=== PATIENT | female | born 1955 | race Caucasian/White ===

== ENCOUNTER → 2017-01-11 | Outpatient (CLI) | payer BC ==
--- NOTE | 2017-01-11 11:27 | MM ---
Reason for exam: screening (asymptomatic). Last mammogram was performed 1 year and 9 months ago. History: Patient is postmenopausal and has history of other cancer at age 26. Physical Findings: A clinical breast exam by your physician is recommended on an annual basis and results should be correlated with mammographic findings. MG 3D Screening Mammo W/Cad Bilateral CC and MLO view(s) were taken. Prior study comparison: April 03, 2015, mammogram, performed at [facility]. February 19, 2014, mammogram, performed at [facility]. There are scattered fibroglandular densities. No significant changes when compared with prior studies. ASSESSMENT: Benign, BI-RAD 2 RECOMMENDATION: Routine screening mammogram of both breasts in 1 year.
== END | disposition home or self-care (01) ==
LOC: RADMAMWWP 07:59
PROVIDERS: ATTEND Family Medicine
DX: Z12.31 Encounter for screening mammogram for malignant neoplasm of breast (principal)
CPT/HCPCS: 77063; G0202

== ENCOUNTER → 2017-01-31 | Outpatient (CLI) | payer BC ==
--- NOTE | 2017-01-31 12:57 | XR ---
EXAMINATION TYPE: XR knee complete LT DATE OF EXAM: 01/31/2017 COMPARISON: NONE HISTORY: Pain TECHNIQUE: Four views are submitted. FINDINGS: Moderate generalized degenerative change with mild hypertrophic changes. No erosive change. Mild diff use osteopenia. Osseous structures are intact. No acute fracture seen. IMPRESSION: 1. Osteoarthritis..
== END ==
LOC: RADXRMAIN 12:33
PROVIDERS: ATTEND Family Medicine
DX: M17.12 Unilateral primary osteoarthritis, left knee (principal)

== ENCOUNTER → 2018-06-23 | Outpatient (CLI) | payer BC, OTHER ==
--- NOTE | 2018-06-23 10:45 | BD ---
EXAMINATION TYPE: Axial Bone Density DATE OF EXAM: 06/23/2018 COMPARISON: NONE. Baseline exam. CLINICAL HISTORY: Postmenopausal female. Osteoporosis screening. Height: 67.5 IN Weight: 201 LBS RISK FACTORS HISTORY OF: History of Wrist Fracture: YES RT AGE 13 Active: YES Postmenopausal woman: AGE 56 MEDICATIONS: Thyroid Medications: YES Which medication: Levothyroxine How Lon+ YEARS Additional Medications: VIT D, MULTI VIT, LEVOTHYROXINE, SIMVASTATIN EXAM MEASUREMENTS: Bone mineral densitometry was performed using the IFTTT System. Bone mineral density as measured about the Lumbar spine is: ----- L1-L4(G/cm2): 0.864 T Score Values are as follows: ----- L2: -2.8 ----- L3: 2.6 ----- L4: 2.8 ----- L1-L4: 2.6 Bone mineral density BASELINE Bone mineral density about the R hip (g/cm2): 0.768 Bone mineral density about the L hip (g/cm2): 0.747 T Score values are as follows: -----R Neck: -1.9 -----L Neck: -2.1 -----R Total: -2.3 -----L Total: -1.4 Bone mineral density BASELINE IMPRESSION: Osteopenia (T Score between -2.5 and -1). Values approach osteoporosis in regards to the right femur. There is slightly increased risk of fracture and the patient may be considered for treatment. Re-Screen 2-5 years. NOTE: T-SCORE=SD OF THE YOUNG ADULT MEAN.
--- NOTE | 2018-06-26 10:40 | MM ---
Reason for exam: screening (asymptomatic). Last mammogram was performed 1 year and 5 months ago. History: Patient is postmenopausal and has history of other cancer at age 26. Physical Findings: A clinical breast exam by your physician is recommended on an annual basis and results should be correlated with mammographic findings. MG 3D Screening Mammo W/Cad Bilateral CC and MLO view(s) were taken. Prior study comparison: January 11, 2017, bilateral MG 3d screening mammo w/cad. April 03, 2015, mammogram, performed at [facility]. There are scattered fibroglandular densities. No significant changes when compared with prior studies. ASSESSMENT: Negative, BI-RAD 1 RECOMMENDATION: Routine screening mammogram of both breasts in 1 year.
== END | disposition home or self-care (01) ==
LOC: RADMAMWWP 09:07
PROVIDERS: ATTEND Family Medicine
DX: Z12.31 Encounter for screening mammogram for malignant neoplasm of breast (principal); M85.851 Other specified disorders of bone density and structure, right thigh; M85.852 Other specified disorders of bone density and structure, left thigh; M85.89 Other specified disorders of bone density and structure, multiple sites; Z78.0 Asymptomatic menopausal state
CPT/HCPCS: 77063; 77067; 77080

== ENCOUNTER → 2019-01-16 | Outpatient (CLI) | payer BC | END | disposition home or self-care (01) | LOC: LABWHC1 09:26 | PROVIDERS: ATTEND Otolaryngology | DX: J30.89 Other allergic rhinitis (principal) | CPT/HCPCS: 36415 ==

== ENCOUNTER → 2019-07-13 | Outpatient (CLI) | payer BC ==
--- NOTE | 2019-07-16 13:44 | MM ---
Reason for exam: screening (asymptomatic). Last mammogram was performed 1 year and 1 month ago. History: Patient is postmenopausal and has history of other cancer at age 26. Physical Findings: A clinical breast exam by your physician is recommended on an annual basis and results should be correlated with mammographic findings. MG 3D Screening Mammo W/Cad Bilateral CC and MLO view(s) were taken. Prior study comparison: June 23, 2018, bilateral MG 3d screening mammo w/cad. January 11, 2017, bilateral MG 3d screening mammo w/cad. The breast tissue is heterogeneously dense. This may lower the sensitivity of mammography. No suspicious abnormality. No significant changes when compared with prior studies. ASSESSMENT: Negative, BI-RAD 1 RECOMMENDATION: Routine screening mammogram of both breasts in 1 year.
== END | disposition home or self-care (01) ==
LOC: RADMAMWWP 15:25
PROVIDERS: ATTEND Family Medicine
DX: Z12.31 Encounter for screening mammogram for malignant neoplasm of breast (principal)
CPT/HCPCS: 77063; 77067

== ENCOUNTER → 2019-07-19 | Outpatient (CLI) | payer BC ==
--- NOTE | 2019-07-20 10:14 | XR ---
EXAMINATION TYPE: XR wrist complete RT DATE OF EXAM: 07/19/2019 COMPARISON: NONE HISTORY: Pain TECHNIQUE: Four views submitted. FINDINGS: The osseous structures are intact. The joint spaces are preserved and there is no acute fracture or dislocation. Benign cyst within the scaphoid noted. IMPRESSION: 1. No definite acute fracture or dislocation if symptoms persist, follow-up study in 7 to 10 days wo uld be suggested
== END | disposition home or self-care (01) ==
LOC: RADXRMAIN 16:38
PROVIDERS: ATTEND Family Medicine
DX: M25.531 Pain in right wrist (principal)

== ENCOUNTER → 2019-07-26 | Outpatient (CLI) | payer BC | END | disposition home or self-care (01) | LOC: LABWHC1 06:54 | PROVIDERS: ATTEND Orthopaedic Surgery | DX: M25.531 Pain in right wrist (principal) | CPT/HCPCS: 36415; 82306 ==

== ENCOUNTER → 2020-10-22 | Outpatient (CLI) | payer BC ==
--- NOTE | 2020-10-23 05:04 | MR ---
EXAMINATION TYPE: MR lumbar spine wo con DATE OF EXAM: 10/22/2020 COMPARISON: None HISTORY: Low back pain that goes down left hip and leg for 3-4 weeks. Multiplanar multiecho imaging of the lumbar spine was performed without contrast. Lumbar vertebra have fairly normal alignment. There is some mild posterior disc bulging at L3-4. Ther e is no lumbar paraspinal mass. The posterior elements are intact. Upper sacroiliac joints are intact . There is narrowing of the L4-5 disc but there is slight increased signal in the disc space on the T2 images. No significant reactive changes seen in the adjacent vertebral bodies. There is right side sm all disc herniation at L4-5 impinging on the lateral recess. There is posterior apparent disc herniat ion at L5-S1 which is extruded and elevating the posterior longitudinal ligament along the posterior aspect of the L5 vertebral body. This does not appear to be lateralizing 2 year side. IMPRESSION: Posterior disc herniation at L5-S1 with elevation of the posterior longitudinal ligament. There is ov erall not a significant spinal stenosis. I do not see a significant abnormality lateralizing to the l eft side in this patient with left side pain. There is small posterior L4-5 disc herniation on the right side. There is mild increased fluid signal in the L4-5 disc that raises the possibility of an early discitis.
== END | disposition home or self-care (01) ==
LOC: RADMRIMAIN 16:56
PROVIDERS: ATTEND Nurse Practitioner Family
DX: M51.27 Other intervertebral disc displacement, lumbosacral region (principal)
CPT/HCPCS: 72148

== ENCOUNTER → 2021-09-09 | Outpatient (CLI) | payer MEDICARE | END | disposition home or self-care (01) | LOC: LABWHC1 09:52 | PROVIDERS: ATTEND Nurse Practitioner Family | DX: E78.6 Lipoprotein deficiency (principal) | CPT/HCPCS: 36415; 93005 ==

== ENCOUNTER → 2021-09-21 | Outpatient (CLI) | payer MEDICARE, OTHER ==
[2021-09-21 09:53] LABS: INR 0.9 (<1.2); Partial Thromboplastin Time 23.7 sec (22.0-30.0); Prothrombin Time 10.1 sec (9.0-12.0)
[2021-09-21 14:53] LABS: HCT 39.8 % (37.2-46.3); HGB 12.8 g/dL (12.0-15.0); MCHC 32.2 g/dL (32.0-37.0); MCV 93.4 fL (80.0-97.0); Mean Platelet Volume 10.8 fL (9.5-12.2); NRBC Per 100 WBC 0 /100 WBCS (0.0-0.0); Platelet Count 249 X 10*3/uL (140-440); RBC 4.26 X 10*6/uL (4.10-5.20); RDW 12.9 % (11.5-14.5); WBC 4.76 X 10*3/uL (4.50-10.00)
[2021-09-21 15:00] LABS: African American GFR (CKD) 67.7 (60.0-200.0); Albumin 4.4 g/dL (3.8-4.9); Albumin/Globulin Ratio 1.74 (1.60-3.17); Anion Gap 15.7 mmol/L (10.00-18.00); BUN/Creat Ratio 13.86 Ratio (12.00-20.00); Calcium 9.6 mg/dL (8.7-10.3); Carbon Dioxide 24.7 mmol/L (20.0-27.5); Globulin 2.5 g/dL (1.6-3.3); Non-African American GFR(CKD) 58.4 (60.0-200.0); Potassium 3.5 mmol/L (3.5-5.5); Total Bilirubin 0.5 mg/dL (0.30-1.20); Total Protein 6.9 g/dL (6.2-8.2)
[2021-09-21 16:05] LABS: Appearance,Urine Clear (Clear); Bacteria,Urine None Seen /HPF (None Seen); Bilirubin,Urine Negative (Negative); Blood,Urine Negative (Negative); Color,Urine Yellow (Yellow); Ketones,Urine Negative (Negative); Leukocyte Esterase,Urine Trace (Negative); Nitrite,Urine Negative (Negative); Protein,Urine Negative (Negative); RBC,Urine 0-2 /HPF (0-2); Specific Gravity,Urine 1.008 (1.001-1.030); Urobilinogen,Urine 0.2 (0.2,1.0); WBC,Urine 0-5 /HPF (0-5)
== END | disposition home or self-care (01) ==
LOC: LABPAT 07:37
PROVIDERS: ATTEND Orthopaedic Surgery
DX: Z01.812 Encounter for preprocedural laboratory examination (principal); M16.11 Unilateral primary osteoarthritis, right hip
CPT/HCPCS: 80053; 81001; 85027; 85610; 85730; 87070

== ENCOUNTER 2021-09-30 16:32 | Day surgery (SDC) | payer MEDICARE, OTHER ==
[2021-09-28 12:24] VITALS: BMI 32.5
[2021-09-30] MEDS: LACTATED RINGERS 1,000 ML IV SCH (11:40)
--- NOTE | 2021-09-30 16:25 | P.OP ---
Date of Procedure: 09/30/21 Preoperative Diagnosis: Severe right hip osteoarthritis Postoperative Diagnosis: Same Procedure(s) Performed: Right direct anterior total hip arthroplasty Implants: 1. Sloan Trident II 54-mm cup 2. Sloan accolade C size #5 STD offset cemented stem 3. Biolox delta ceramic 36 mm head, +2.5 mm Anesthesia: JAMAR Surgeon: Michael Henao Radiology Ct Technologist #1: Miri Cheng Estimated Blood Loss (ml): 500 IV fluids (ml): 1,200 Pathology: none sent Condition: stable Disposition: PACU Indications for Procedure: I had a long discussion with the patient in the office on the potential risks and complications of an elective total hip replacement through a direct anterior approach. Risks discussed include, but are certainly not limited to, risks from anesthesia, superficial infection requiring local wound care or antibiotics, deep ralph-prosthetic joint infection and the treatment required to eradicate infection, intraoperative fracture, postoperative periprosthetic fracture, damage to local blood vessels or nerves particularly the lateral femoral cutaneous nerve, delayed wound healing requiring local wound care or possibly surgical debridement, hip dislocation, leg length discrepancy, soft tissue irritation around the total hip implant such as iliopsoas tendinitis or trochanteric bursitis, wear and osteolysis from the implants, squeaking or audible noises, groin pain, thigh pain, heterotopic ossification, stiffness, aseptic loosening of the implants, dissatisfaction with surgical outcome, need for revision surgery, DVT, PE, swelling of the operative extremity, acute coronary event, stroke, failure to thrive, and possibly loss of life or limb. The patient understands that while these are the most common complications after an elective hip replacement there are certainly other less common complications possible. They were given ample time to ask questions regarding the potential complications of a hip replacement. Following our discussion the patient provided their verbal and written consent to go forward with an elective total hip replacement. Operative Findings: Severe right hip osteoarthritis. There is diffuse osteopenia and poor quality bone quality both in the acetabulum and femur. Due to the patient's preoperative x-rays showing osteopenia and poor bone quality intraoperatively I elected to use cemented fixation on the femur. Description of Procedure: The patient was identified in the preoperative holding area and the correct hip was marked with my initials. I reviewed the procedure and consent with the pat ient. All of their questions were answered. The patient was then brought back into the operating room by anesthesia. While on the [facility] anesthesia was administered by the anesthesia team. Preoperative antibiotics and tranexamic acid were also given. After the patient was under anesthesia I examined their ankles to determine their preoperative leg length discrepancy. The skin over the anterior aspect of the hip was shaved to remove hair over the site of planned incision. Both feet and ankles were padded with webril and boots for the Holden were applied. The patient was then carefully transferred onto the Holden table. A perineal post was immediately placed. The arms were placed on arm holders and were well-padded. Both boots were secured to the spars on the Holden table. The patient was positioned so that the pelvis was centered over the post. Nonsterile drapes were applied. A timeout was performed identifying the correct patient, operative extremity, and procedure. At this point fluoroscopy was brought in to take preoperative images of the pelvis and operative hip. Using the standing AP pelvis from the office as a template, a comparable image was obtained with fluoroscopy. A metallic bar was used to create a bi-ischial line for use as a reference to leg length adjustments during the procedure. Global offset was also measured on both the operative and nonoperative leg. Fluoroscopy was then brought out and a pre-scrub using a chlorhexidine scrub brush was performed. The operative limb was then prepped and draped in the standard sterile fashion. An anterior longitudinal incision was made lateral and distal to the ASIS. The skin and subcutaneous tissues were incised sharply. The underlying tensor fascia was identified and incised in its midportion. The fascia was dissected free from the underlying muscle and the muscle belly was retracted. A blunt tipped cobra retractor was placed over the superior neck under the muscle fibers of the gluteus minimus. The deep enveloping fascia of the tensor was incised. The anterior leash of vessels were then identified and cauterized. The fascia between the rectus and the capsule was then incised and the pre-capsular fat was excised. A second Cobra was placed inferior to the neck. The interval between the rectus and iliocapsularis and the hip capsule was developed and a retractor was placed carefully over the anterior rim of the acetabulum. A T-shaped anterior capsulotomy was performed. The superior capsular leaflet was left in place in the inferior capsular flap was excised. The Cobra retractors were placed intracapsularly. We then made a femoral neck osteotomy according to preoperative and intraoperative templating and confirmed the level of the osteotomy using fluoroscopic imaging. The femoral head was removed, passed off to the back table, and sized. The superior capsular flap was excised. Retractors were placed circumferentially exposing the acetabulum. We then circumferentially debrided the acetabulum free of labrum and osteophytes. The pulvinar was removed to fully visualize the cotyloid fossa. We then sequentially reamed to achieve peripheral fit and excellent bleeding subchondral bone. The socket was thoroughly irrigated. The acetabular component was impacted into the appropriate position using fluoroscopy to guide version, inclination, and depth of insertion taking care to have a comparable image of the AP pelvis to the standing image taken in the office. An excellent press-fit was achieved and final position was confirmed using fluoroscopy. The press fit was augmented with bony cancellus dome screws. The liner was then impacted into the socket. Attention was then turned to the femur. The remnant dorsal lateral capsule was excised. The short external rotators were visible and protected. A bone hook was used to confirm appropriate translation of the trochanter away from the acetabulum. The leg was then extended and adducted and the bone hook was used to elevate the femur for broaching. On inspection of the patient's proximal femur, they appeared to have poor bone quality so I elected to proceed with cemented fixation of the femoral component. A box osteotome and blunt tipped canal sound was then utilized to gain access to the femoral canal. We then sequentially broached the femur in appropriate anteversion until torsional stability was achieved and the implant was felt to have reached the appropriate size to allow trialing. The neck cut was brought flush to the trial broach with a calcar planar. A trial neck and head were then placed onto the broach and the hip was atraumatically reduced under direct visualization. External rotation to 90 was performed to assess stability. Fluoroscopy was brought in. An AP and lateral fluoroscopic image of the proximal femur was obtained to assess position and fill of the trial broach. An AP of the pelvis was then obtained and matched to the preoperative image taken. A bi-ischial bar was then placed and measurements were taken to assess changes in length and offset. The hip was then carefully dislocated, the proximal femur was exposed, and the trial implants were removed. The proximal femur was then prepared for cementing. The canal was thoroughly irrigated with pulsatile lavage to remove blood and marrow contents. A cement restrictor was placed to a depth just distal to the tip of the final implant. Epinephrine-soaked gauze was then packed into the proximal femur. 2 bags of cement were then mixed using a centrifuge and placed into a cement gun. Anesthesia was notified that cementing was about to commence to make sure the patient was appropriately ventilated and hydrated. Once the cement had reached appropriate consistency, the cement gun was used to fill the canal in a retrograde fashion starting at the restrictor. Cement was then pressurized into the canal with a blue tipped haul truck driver. The stem was then carefully introduced into the cement taking care to guide the implant into appropriate version. The stem was held in position until the cement had fully set. All extra cement was removed while the cement was hardening. The trunnion was cleansed and the final head was tapped into place to engage the Finn taper. The acetabulum was irrigated and visualized to be free of debris. The hip was carefully reduced. Stability was checked clinically with external rotation to 90 and there was no evidence of instability. Final fluoroscopic images were taken. The wound was then thoroughly irrigated and soaked with a dilute Betadine rinse for 3 minutes. 3 L of sterile saline was irrigated through the wound using pulsatile lavage. Local anesthetic cocktail was injected into the soft tissues around the surgical field. A deep drain was placed. The wound was then closed in layers. A sterile dressing was placed over the surgical incision and drain site. The drapes were taken down and the patient was carefully transferred off of the Holden table. Following removal of the boots the leg lengths felt acceptable. The patient was then taken to recovery room having tolerated the procedure well. Miri Cheng PA-C was required as a skilled sociology research assistant for patient positioning, surgical exposure, retraction, placement of implants, and closure of the surgical wound. PLAN: The patient can weight-bear as tolerated on the operative extremity. 2 doses of postoperative antibiotics. DVT prophylaxis with aspirin 81 mg twice a day based on preoperative risk stratification. Physical therapy for gait training. Discontinue drain postoperative day #1 if output is less than 100 mL per shift.
[~2021-09-30 16:32] MED LIST: ACETAMINOPHEN TAB 500 MG TAB PO PRN; DEXAMETHASONE SOD PHOSPHATE 10 MG/ML 1 ML VIAL IV PRN; DEXAMETHASONE SOD PHOSPHATE 4 MG/ML 1 ML VIAL IV ONE; DOCUSATE 100 MG CAP PO PRN; FAMOTIDINE 20 MG/2 ML VIAL IVP PRN; GLYCOPYRROLATE 0.2 MG/ML 2 ML VIAL ONE; HYDROcodone/APAP 5-325MG 1 EACH TAB PO PRN; HYDROmorphone (PF) 1 MG/ML ONE; HYDROmorphone 0.5 MG/0.5 ML SYRINGE IVP PRN; KETOROLAC 15 MG/ML 1 ML VIAL IVP PRN; LACTATED RINGERS 1,000 ML IV ONE; LIDOCAINE 1% (10MG/ML) FOR IV START INTRADERMA PRN; LIDOCAINE 1% INJ 10MG/ML (20 ML MDV) ONE; MIDAZOLAM 2 MG/2 ML VIAL ONE; NALOXONE 0.4 MG/ML 1 ML VIAL IV PRN; NEOSTIGMINE 1 MG/ML 10 ML VIAL ONE; ONDANSETRON 4 MG/2 ML VIAL IVP ONE; ONDANSETRON 4 MG/2 ML VIAL IVP PRN; PROPOFOL 10 MG/ML 20 ML VIAL IV ONE; ROCURONIUM 10 MG/ML (5 ML VIAL) IV ONE; ROPIVACAINE 246.25 MG, EPINEPHrine 0.5 MG, KETOROLAC (30 mg/mL) 30 MG, cloNIDine HCL/PF... MISCELLANE PRN; ROPIVACAINE/EPI/CLONIDINE/KET 50 ML SYRINGE MISCELLANE PRN; SCOPOLAMINE 1.5MG/72HR PATCH TRANSDERM ONE; SUCCINYLCHOLINE CHLORIDE 100 MG/5 ML SYR IV ONE; TRANEXAMIC ACID 1,000 MG in SODIUM CHLORIDE 0.9% 100 ML IVPB ONE; TRANEXAMIC ACID IN NACL,ISO-OS 1,000 MG in SALINE 1 100ML.BAG IVPB PRN; TRANEXAMIC ACID IN NACL,ISO-OS 1,000 MG/100 ML BAG ONE; VANCOMYCIN 1,000 MG in SODIUM CHLORIDE 0.9% 250 ML IVPB PRN; ceFAZolin 3,000 MG in SODIUM CHLORIDE 0.9% IRRIGATIO 3,000 ML IRRIGATION ONE; diphenhydrAMINE 50 MG/ML 1 ML VIAL ONE; fentaNYL (PF) 50 MCG/ML 2 ML AMP ONE; hydrOXYzine pamoate 25 MG CAP PO PRN; oxyCODONE ER 10 MG TAB.ER.12H PO PRN
--- NOTE | 2021-09-30 16:42 | XR ---
EXAMINATION TYPE: XR Hip Limited RT DATE OF EXAM: 09/30/2021 COMPARISON: NONE HISTORY: Hip surgery TECHNIQUE: 5 views FINDINGS: 36 seconds of fluoroscopy time was recorded. There are 5 fluoroscopic images that show righ t hip prosthesis in anatomic position. No complicating process seen. IMPRESSION: No complicating process seen.
[2021-09-30] MEDS: HYDROmorphone 0.5 MG/0.5 ML SYRINGE IVP PRN (17:45)
[2021-09-30] MEDS: ASPIRIN 81 MG PO SCH (20:23)
[2021-09-30] MEDS: SENNOSIDES-DOCUSATE SODIUM 1 EACH TAB PO SCH (20:23)
[2021-10-01] MEDS: HYDROmorphone 0.5 MG/0.5 ML SYRINGE IVP PRN (06:23)
[2021-10-01 06:29] LABS: Basophils % (A) 0 %; Eosinophils % (A) 0 %; HCT 33.4 % (34.0-46.0); HGB 11.1 gm/dL (11.4-16.0); Lymphocytes # (A) 1.1 k/uL (1.0-4.8); Lymphocytes % (A) 13 %; MCH 31.6 pg (25.0-35.0); MCHC 33.2 g/dL (31.0-37.0); Mean Platelet Volume 7.3; Monocytes # (A) 0.6 k/uL (0-1.0); Monocytes % (A) 7 %; Neutrophils # (A) 6.8 k/uL (1.3-7.7); Neutrophils % (A) 79 %; Platelet Count 224 k/uL (150-450); RBC 3.51 m/uL (3.80-5.40); RDW 13.1 % (11.5-15.5); WBC 8.6 k/uL (3.8-10.6)
[2021-10-01] MEDS: LACTATED RINGERS 1,000 ML IV SCH (08:16)
[2021-10-01] MEDS: ASPIRIN 81 MG PO SCH ×2 (08:26→19:54)
--- NOTE | 2021-10-01 09:07 | FL ---
Fluoroscopy HISTORY: Hip replacement 36 seconds fluoroscopy time supplied to the referring clinician. 7 intraoperative C-arm images docum ent the procedure. See dictated report from orthopedic surgery.
[2021-10-01] MEDS: Acetaminophen-Codeine 300-30mg TAB PO PRN ×5 (09:11→23:58)
[2021-10-01] MEDS ORDERED: SODIUM CHLORIDE 0.65% NASAL SPRAY 44 ML BTL INTRANASAL PRN (09:31)
[2021-10-01] MEDS: LORATADINE 10 MG TAB PO SCH (10:16)
[2021-10-01] MEDS: CHOLECALCIFEROL 25 MCG (1000 IU) TABLET PO SCH (10:18)
[2021-10-01] MEDS: LEVOTHYROXINE 125 MCG TAB PO SCH (10:18)
[2021-10-01] MEDS: MULTIVITAMINS, THERA 1 EACH TAB PO SCH (10:18)
--- NOTE | 2021-10-01 11:56 | P.CONS ---
History of Present Illness - Reason for Consult Consult date: 10/01/21 Medical management Requesting physician: Michael Henao - Chief Complaint Severe right hip osteoarthritis - History of Present Illness Patient is a pleasant 66-year-old female that underwent right direct anterior total hip arthroplasty with Dr. Henao for severe right hip osteoarthritis. Patient has a pertinent medical history of hyperlipidemia, hypothyroidism, o steoarthritis, history of skin cancer and cervical cancer. Patient was seen and evaluated at bedside, was sitting up in the chair in no acute distress. Patient states she tolerated surgery well, does have surgical site pain that is being well managed with current medications. Patient also reports an episode of dizziness and having low blood pressure this morning. IV fluids were restarted and patient is feeling better. Home medications were reordered. Continue to monitor patient for hypotension and syncope. Review of Systems Constitutional: Denies chills, Denies fever Ears, nose, mouth and throat: Denies vertigo Cardiovascular: Reports lightheadedness, Denies high blood pressure, Denies palpitations, Denies shortness of breath Respiratory: Denies cough, Denies wheezing Gastrointestinal: Denies abdominal pain, Denies diarrhea, Denies nausea Genitourinary: Denies dysuria Musculoskeletal: right: hip pain Integumentary: Denies rash, Denies wounds Neurological: Denies headaches, Denies numbness Psychiatric: Denies anxiety Endocrine: Denies fatigue, Denies high blood sugars Hematologic/Lymphatic: Denies easy bruising Allergic/Immunologic: Denies angioedema Past Medical History Past Medical History: Cancer, Hyperlipidemia, Musculoskeletal Disorder, Osteoarthritis (OA), Thyroid Disorder Additional Past Medical History / Comment(s): seasonal allergies, hx. cervical cancer yrs ago-stage 1, skin cancer, constipation, current herniated disc History of Any Multi-Drug Resistant Organisms: None Reported Past Surgical History: Joint Replacement, Orthopedic Surgery Additional Past Surgical History / Comment(s): right knee surg, john paul bunionectomy & toe surg, cataracts removed, partial thyroidectomy, trh 09/30/21 Past Anesthesia/Blood Transfusion Reactions: Motion Sickness, Postoperative Nausea & Vomiting (PONV) Past Psychological History: Anxiety Additional Psychological History / Comment(s): regarding this surgery Smoking Status: Never smoker Past Alcohol Use History: Rare Past Drug Use History: None Reported - Past Family History Mother Family Medical History: No Reported History Medications and Allergies Home Medications Medication Instructions Recorded Confirmed Type Acetaminophen [Tylenol Extra 500 mg PO Q6H PRN 09/28/21 09/28/21 History Strength] Atorvastatin [Lipitor] 80 mg PO DAILY 09/28/21 09/28/21 History Cholecalciferol [Vitamin D3 (25 25 mcg PO DAILY 09/28/21 09/28/21 History Mcg = 1000 Iu)] Fexofenadine HCl [Maddi Allergy] 180 mg PO DAILY 09/28/21 09/28/21 History Fish Oil/Dha/Epa [Fish Oil 1,200 1 each PO BID 09/28/21 09/28/21 History mg Fish Oil] Glucos Sul 2Kcl/MSM/Chond/C/Mn 1 each PO DAILY 09/28/21 09/28/21 History [Glucosamine Chondroitin Cap] Levothyroxine Sodium [Synthroid] 125 mcg PO DAILY 09/28/21 09/28/21 History Montelukast Sodium [Singulair] 10 mg PO HS 09/28/21 09/28/21 History Multivitamins, Thera [Multivitamin 1 tab PO DAILY 09/28/21 09/28/21 History (formulary)] Sodium Chloride [Saline Nasal 1 spray EA NOSTRIL DIRECTED PRN 09/28/21 09/28/21 History Eitzen] Triamterene/Hydrochlorothiazid 1 each PO HS 09/28/21 09/28/21 History [Triamterene-Hctz 37.5-25 mg Tb] traMADol HCL [Ultram] 50 mg PO Q6HR PRN 09/28/21 09/28/21 History Acetaminophen-Codeine 300-30mg 1 tab PO Q4-6H PRN 7 Days #40 10/01/21 Rx [Tylenol w/codeine #3] tablet Aspirin 81 mg PO BID 30 Days #60 tab 10/01/21 Rx Docusate [Colace] 100 mg PO BID #60 capsule 10/01/21 Rx Omeprazole 40 mg PO DAILY 30 Days #30 cap 10/01/21 Rx Allergies Allergy/AdvReac Type Severity Reaction Status Date / Time hydrocodone [From Vicodin] AdvReac nausea, Verified 09/30/21 11:24 "feels loopy" Sulfa (Sulfonamide AdvReac Abdominal Verified 09/30/21 11:24 Antibiotics) Pain, nausea, vomiting Physical Exam Vitals: Vital Signs Temp Pulse Pulse Resp BP Pulse Ox 10/01/21 07:51 98.6 F 63 18 85/50 95 10/01/21 01:22 97.4 F L 63 16 107/67 93 L 09/30/21 20:10 98.6 F 76 16 110/71 98 09/30/21 18:15 88 92/63 09/30/21 18:00 93 105/64 09/30/21 17:45 66 111/72 09/30/21 17:30 65 103/65 09/30/21 17:15 98.5 F 73 127/85 97 09/30/21 16:59 63 16 99/58 100 09/30/21 16:45 57 L 16 96/56 99 09/30/21 16:30 58 L 16 105/60 100 09/30/21 16:15 97.3 F L 72 12 112/64 97 Intake and Output 09/30/21 10/01/21 10/01/21 22:59 06:59 14:59 Intake Total 500 Output Total 660 1004 Balance -160 -1004 Intake: IV 500 Output: Drainage 160 120 Right Thigh 160 120 Urine 800 Straight 400 Post Void Residual 84 Estimated Blood Loss 500 Other: Weight 98.6 kg - Constitutional General appearance: cooperative, no acute distress - EENT Eyes: EOMI, PERRLA ENT: normal oropharynx Ears: bilateral: normal - Neck Neck: normal ROM - Respiratory Respiratory: bilateral: CTA - Cardiovascular Heart rate: 60 Rhythm: regular Heart sounds: normal: S1, S2 radial pulse Peripheral Pulses: bilateral: Normal dorsalis pedis Peripheral Pulses: bilateral: Normal - Gastrointestinal General gastrointestinal: normal bowel sounds, soft - Integumentary Integumentary: normal - Musculoskeletal Musculoskeletal: gait normal - Psychiatric Psychiatric: A&O x's 3, appropriate affect, intact judgment & insight Results CBC & Chem 7: 10/01/21 05:48 Labs: Abnormal Lab Results - Last 24 Hours (Table) 10/01/21 Range/Units 05:48 RBC 3.51 L (3.80-5.40) m/uL Hgb 11.1 L (11.4-16.0) gm/dL Hct 33.4 L (34.0-46.0) % Assessment and Plan Assessment: Right hip osteoarthritis Status post total hip arthroplasty Hypothyroidism Hyperlipidemia History of skin and cervical cancer Plan: Patient's home medications were reordered Complete metabolic panel ordered to assess electrolyte status Continue to monitor blood pressure for hypotension Orthostatic blood pressure assessment Continue to manage postoperative pain Further recommendations come based on patient's clinical course Time with Patient: Greater than 30
[2021-10-01] MEDS: CYCLOBENZAPRINE 5 MG TAB PO PRN ×2 (12:05→21:49)
[2021-10-01 12:48] LABS: ALT 17 U/L (4-34); AST 38 U/L (14-36); African American GFR (CKD) 64 (>60 ml/min/1.73 sqM); Albumin 3.4 g/dL (3.5-5.0); Albumin/Globulin Ratio 1.3; Alkaline Phosphatase 62 U/L (38-126); Anion Gap 8 mmol/L; Blood Urea Nitrogen 22 mg/dL (7-17); Calcium 8.5 mg/dL (8.4-10.2); Carbon Dioxide 23 mmol/L (22-30); Chloride 99 mmol/L (98-107); Globulin 2.6 g/dL; Glucose 125 mg/dL (74-99); Non-African American GFR(CKD) 56 (>60 ml/min/1.73 sqM); Potassium 4.2 mmol/L (3.5-5.1); Sodium 130 mmol/L (137-145); Total Bilirubin 1.4 mg/dL (0.2-1.3)
--- NOTE | 2021-10-01 15:05 | P.PN ---
Subjective Progress Note Date: 10/01/21 This patient is a 66-year-old female who is status-post right total hip arthroplasty on 09/30/21. Patient is seen and examined bedside. Patient states she is experiencing muscle spasms moderate pain in her right hip. She has been ambulating with a walker. Per nursing, they did state that the patient earlier this morning. Patient denies chest pain, shortness of breath, nausea, vomiting, fevers, chill s. She denies numbness or tingling right lower extremity. Vital signs stable, patient was mildly hypotensive this morning. Objective - Vital Signs Vital signs: Vital Signs Temp 98.9 F 10/01/21 13:44 Pulse 67 10/01/21 13:44 Resp 18 10/01/21 07:51 BP 109/65 10/01/21 13:44 Pulse Ox 95 10/01/21 13:44 Intake & Output 09/30/21 10/01/21 10/01/21 18:59 06:59 18:59 Intake Total 1551 Output Total 500 1164 Balance 1051 -1164 Weight 98.6 kg Intake: IV 1551 Output: Drainage 280 Right Thigh 280 Urine 800 Straight 400 Post Void Residual 84 Estimated Blood Loss 500 - Exam On examination, patient is sitting up in bed in no apparent distress. She is alert and oriented 3. On inspection of the right hip, there is a clean, dry, intact surgical dressing in place. No bleeding or drainage through the binh ssing. There is mild swelling of the thigh, the thigh is soft and compressible. Motor and sensory function is intact of the right lower extremity. Dorsalis pedis pulses easily palpable, the right lower extremes warm and well perfused with brisk capillary refill distally. The calf is soft and nontender to palpation. - Labs CBC & Chem 7: 10/01/21 05:48 10/01/21 11:57 Labs: Abnormal Lab Results - Last 24 Hours (Table) 10/01/21 10/01/21 Range/Units 05:48 11:57 RBC 3.51 L (3.80-5.40) m/uL Hgb 11.1 L (11.4-16.0) gm/dL Hct 33.4 L (34.0-46.0) % Sodium 130 L (137-145) mmol/L BUN 22 H (7-17) mg/dL Creatinine 1.05 H (0.52-1.04) mg/dL Glucose 125 H (74-99) mg/dL Total Bilirubin 1.4 H (0.2-1.3) mg/dL AST 38 H (14-36) U/L Total Protein 6.0 L (6.3-8.2) g/dL Albumin 3.4 L (3.5-5.0) g/dL Assessment and Plan Assessment: Status-post right total hip arthroplasty on 09/30/21. Post-operative day #1. Plan: - Weight-bear as tolerated on operative extremity with a walker. - Physical therapy for gait and balance training. - Keep operative dressings intact. Drain was pulled this morning. - Pain management as needed. - Aspirin 81 mg twice a day for DVT prophylaxis. - Internal medicine for perioperative medical management. - Anticipate discharge home tomorrow.
[2021-10-01] MEDS: SENNOSIDES-DOCUSATE SODIUM 1 EACH TAB PO SCH (19:54)
[2021-10-01] MEDS ORDERED: MONTELUKAST 10 MG TAB PO SCH (21:00)
[2021-10-02] MEDS: Acetaminophen-Codeine 300-30mg TAB PO PRN ×2 (04:52→10:49)
[2021-10-02] MEDS: LEVOTHYROXINE 125 MCG TAB PO SCH (04:52)
[2021-10-02] MEDS: ASPIRIN 81 MG PO SCH (07:35)
[2021-10-02] MEDS: LORATADINE 10 MG TAB PO SCH (07:35)
[2021-10-02] MEDS: MULTIVITAMINS, THERA 1 EACH TAB PO SCH (07:35)
[2021-10-02] MEDS: CHOLECALCIFEROL 25 MCG (1000 IU) TABLET PO SCH (07:35)
--- NOTE | 2021-10-02 08:47 | P.DS ---
Providers Date of admission: 09/30/21 10:45 Expected date of discharge: 10/02/21 Attending physician: Michael Henao Consults: 09/30/21 16:15 Consult Physician Routine Consulting Provider: Srini Abbott Consult Reason/Comments: medical managment Do you want consulting provider notified?: Yes Primary care physician: Srini Abbott [facility] Course: This is a 66-year-old female who was last seen in our office with complaint of continued right hip pain. The patient has a known history of degenerative arthritis of the right hip and presents to discuss surgical options. After discussion and consideration the patient elects to proceed with total right hip arthroplasty. She is seen preoperatively by her family physician Dr. Abbott and cleared for surgery. Patient was taken to surgery on 09/30/21 for total right hip arthroplasty. The patient is admitted to [facility] for total right hip arthroplasty. The procedure is performed without complication or sequelae. The patient is doing well post-operatively. Vital signs and post-operative labs are stable on post-operative day #2. Patient is seen and examined this morning with Dr. Henao. She states her pain is well-controlled in her right hip. She feels well and is comfortable being discharged home today. She is ambulating with a walker with minimal assistance. Patient denies chest pain, shortness of breath, nausea, vomiting, fevers, chills. On examination, the patient is sitting up in bed in no apparent distress. She is alert and orientated x3. On inspection of the right hip, there is a clean, dry, intact dressing intact. No bleeding or drainage through the dressing. Mild swelling of the thigh, thigh is soft and compressible. Motor and sensory function is intact of the right lower extremity. Dorsalis pedis pulse +2, the right lower extremity is warm and well perfused. Calf is soft and non-tender to palpation. The patient is discharged to home with home health services today in good condition, pending medical clearance. Please see med rec for accurate list of discharge medications. Please refer to the med rec for accurate list of medications. Plan - Discharge Summary Discharge Rx Participant: No New Discharge Prescriptions: New Docusate [Colace] 100 mg PO BID #60 capsule Omeprazole 40 mg PO DAILY 30 Days #30 cap Acetaminophen-Codeine 300-30mg [Tylenol w/codeine #3] 1 tab PO Q4-6H PRN 7 Days #40 tablet PRN Reason: Pain Aspirin 81 mg PO BID 30 Days #60 tab No Action Montelukast Sodium [Singulair] 10 mg PO HS Levothyroxine Sodium [Synthroid] 125 mcg PO DAILY Atorvastatin [Lipitor] 80 mg PO DAILY Fexofenadine HCl [Maddi Allergy] 180 mg PO DAILY Sodium Chloride [Saline Nasal Girard] 1 spray EA NOSTRIL DIRECTED PRN PRN Reason: allergies Fish Oil/Dha/Epa [Fish Oil 1,200 mg Fish Oil] 1 each PO BID Acetaminophen [Tylenol Extra Strength] 500 mg PO Q6H PRN PRN Reason: Pain traMADol HCL [Ultram] 50 mg PO Q6HR PRN PRN Reason: Pain Triamterene/Hydrochlorothiazid [Triamterene-Hctz 37.5-25 mg Tb] 1 each PO HS Multivitamins, Thera [Multivitamin (formulary)] 1 tab PO DAILY Cholecalciferol [Vitamin D3 (25 Mcg = 1000 Iu)] 25 mcg PO DAILY Glucos Sul 2Kcl/MSM/Chond/C/Mn [Glucosamine Chondroitin Cap] 1 each PO DAILY Discharge Medication List Acetaminophen [Tylenol Extra Strength] 500 mg PO Q6H PRN 09/28/21 [History] Atorvastatin [Lipitor] 80 mg PO DAILY 09/28/21 [History] Cholecalciferol [Vitamin D3 (25 Mcg = 1000 Iu)] 25 mcg PO DAILY 09/28/21 [History] Fexofenadine HCl [Maddi Allergy] 180 mg PO DAILY 09/28/21 [History] Fish Oil/Dha/Epa [Fish Oil 1,200 mg Fish Oil] 1 each PO BID 09/28/21 [History] Glucos Sul 2Kcl/MSM/Chond/C/Mn [Glucosamine Chondroitin Cap] 1 each PO DAILY 09/28/21 [History] Levothyroxine Sodium [Synthroid] 125 mcg PO DAILY 09/28/21 [History] Montelukast Sodium [Singulair] 10 mg PO HS 09/28/21 [History] Multivitamins, Thera [Multivitamin (formulary)] 1 tab PO DAILY 09/28/21 [History] Sodium Chloride [Saline Nasal Girard] 1 spray EA NOSTRIL DIRECTED PRN 09/28/21 [History] Triamterene/Hydrochlorothiazid [Triamterene-Hctz 37.5-25 mg Tb] 1 each PO HS 09/28/21 [History] traMADol HCL [Ultram] 50 mg PO Q6HR PRN 09/28/21 [History] Acetaminophen-Codeine 300-30mg [Tylenol w/codeine #3] 1 tab PO Q4-6H PRN 7 Days #40 tablet 10/01/21 [Rx] Aspirin 81 mg PO BID 30 Days #60 tab 10/01/21 [Rx] Docusate [Colace] 100 mg PO BID #60 capsule 10/01/21 [Rx] Omeprazole 40 mg PO DAILY 30 Days #30 cap 10/01/21 [Rx] Follow up Appointment(s)/Referral(s): [facility], [NON-STAFF] - ([facility] will call you to schedule your in home physical therapy visits. ) Michael Henao MD [Medical Doctor] - 2 Weeks Patient Instructions/Handouts: Advance Directives (DC) Activity/Diet/Wound Care/Special Instructions: Weight bear as tolerated on operative leg with a walker. Keep operative dressings intact until follow-up appointment in the office. Take pain medications as prescribed. Take aspirin 81mg twice a day for blood clot prevention. Follow-up in the office in two weeks with Dr. Henao. Call the office with any questions or concerns, Discharge Disposition: HOME WITH HOME HEALTH SERVICES
[2021-10-02 08:59] VITALS: BP 110/62; PULSE 81; RESP 18; TEMP 98.1
[2021-10-02] MEDS ORDERED: ATORVASTATIN 80 MG TAB PO SCH (09:00)
--- NOTE | 2021-10-02 10:47 | P.PN ---
Subjective Progress Note Date: 10/02/21 Principal diagnosis: Right hip osteoarthritis Patient is a pleasant 66-year-old female that underwent right direct anterior total hip arthroplasty with Dr. Henao for severe right hip osteoarthritis. Patient has a pertinent medical history of hyperlipidemia, hypothyroidism, o steoarthritis, history of skin cancer and cervical cancer. Patient was seen and evaluated at bedside, was sitting up in the chair in no acute distress. Patient states she tolerated surgery well, does have surgical site pain that is being well managed with current medications. Patient also reports an episode of dizziness and having low blood pressure this morning. IV fluids were restarted and patient is feeling better. Home medications were reordered. Continue to monitor patient for hypotension and syncope. 10/02/2021 Patient is seen and assessed at bedside. Blood pressure improved, patient denies dizziness, chest pain, shortness breath, or chills. Patient continues to have postop pain, well-managed by current regimen. Patient states she is ready to go home, patient is medically cleared for discharge. Objective - Vital Signs Vital signs: Vital Signs Temp 98.1 F 10/02/21 07:56 Pulse 81 10/02/21 07:56 Resp 18 10/02/21 07:56 BP 110/62 10/02/21 07:56 Pulse Ox 93 L 10/02/21 07:56 Intake & Output 10/01/21 10/02/21 10/02/21 18:59 06:59 18:59 Other: Voiding Method Toilet # Voids 3 1 - Constitutional General appearance: Present: cooperative, no acute distress - EENT Eyes: Present: EOMI, PERRLA ENT: Present: normal oropharynx - Neck Neck: Present: normal ROM Thyroid: bilateral: normal size - Respiratory Respiratory: bilateral: rhonchi - Cardiovascular Heart rate: 80 Rhythm: regular Heart sounds: normal: S1, S2 - Gastrointestinal General gastrointestinal: Present: normal bowel sounds, soft - Integumentary Integumentary: Present: normal - Neurologic Neurologic: Present: CNII-XII intact - Psychiatric Psychiatric: Present: A&O x's 3 - Allied health notes Allied health notes reviewed: nursing - Labs CBC & Chem 7: 10/01/21 05:48 10/01/21 11:57 Labs: Abnormal Lab Results - Last 24 Hours (Table) 10/01/21 Range/Units 11:57 Sodium 130 L (137-145) mmol/L BUN 22 H (7-17) mg/dL Creatinine 1.05 H (0.52-1.04) mg/dL Glucose 125 H (74-99) mg/dL Total Bilirubin 1.4 H (0.2-1.3) mg/dL AST 38 H (14-36) U/L Total Protein 6.0 L (6.3-8.2) g/dL Albumin 3.4 L (3.5-5.0) g/dL Assessment and Plan Assessment: Right hip osteoarthritis Status post total hip arthroplasty Hypothyroidism Hyperlipidemia History of skin and cervical cancer Plan: Patient is medically cleared for discharge Patient was educated to use incentive spirometry at home to prevent pneumonia Patient to follow-up in the office as needed Time with Patient: Greater than 30
== END 2021-10-02 11:47 | disposition home health service (06) ==
LOC: OR 16:32 → 2ORMAIN 16:36 → 4SSUR 16:36 → UNDODISOB 10-02 11:47 → OR 10-02 11:47
PROVIDERS: ATTEND Orthopaedic Surgery
DX: M16.11 Unilateral primary osteoarthritis, right hip (principal); M85.88 Other specified disorders of bone density and structure, other site; I95.9 Hypotension, unspecified; R42 Dizziness and giddiness; E78.5 Hyperlipidemia, unspecified; R51.9 Headache, unspecified; K59.00 Constipation, unspecified; E89.0 Postprocedural hypothyroidism; F41.9 Anxiety disorder, unspecified; R26.81 Unsteadiness on feet; Z85.828 Personal history of other malignant neoplasm of skin; Z85.41 Personal history of malignant neoplasm of cervix uteri; Z79.82 Long term (current) use of aspirin; Z79.899 Other long term (current) drug therapy; Z79.890 Hormone replacement therapy; Z88.5 Allergy status to narcotic agent; Z88.2 Allergy status to sulfonamides; Z88.8 Allergy status to other drugs, medicaments and biological substances; Z98.890 Other specified postprocedural states; Z98.49 Cataract extraction status, unspecified eye; Z96.60 Presence of unspecified orthopedic joint implant; Z83.3 Family history of diabetes mellitus
CPT/HCPCS: 97116; 97161; 97166; 86900; 86901; 88305; 80053; 85025; 86850; 88311; 73501; 27130; C1776; C1713; J2250; J0171; J1200; J1100; J2710; J0690 ×3; J2405; J2001; J3010; J1885 ×2; J1170 ×3; J2795; J0330; J2704; J0735

== ENCOUNTER → 2021-11-12 | Outpatient (CLI) | payer MEDICARE, OTHER | END | disposition home or self-care (01) | LOC: LABWHC1 10:09 | PROVIDERS: ATTEND Orthopaedic Surgery | DX: M17.11 Unilateral primary osteoarthritis, right knee (principal); M25.561 Pain in right knee; M25.551 Pain in right hip; Z96.641 Presence of right artificial hip joint; Z47.1 Aftercare following joint replacement surgery | CPT/HCPCS: 36415; 82306 ==

== ENCOUNTER → 2021-12-09 | Outpatient (CLI) | payer MEDICARE, OTHER ==
--- NOTE | 2021-12-09 15:58 | BD ---
EXAMINATION TYPE: Axial Bone Density DATE OF EXAM: 12/09/2021 COMPARISON: NONE CLINICAL HISTORY: 66 years year old Female. ICD-10 CODE: Z78.0 MENOPAUSAL STATE Height: 68 Weight: 208.1 FRAX RISK QUESTIONS: Alcohol (3 or more units per day): NO Family History (Parent hip fracture): NO Glucocorticoids (More than 3mos): NO (History of Fracture in Adulthood: YES Secondary Osteoporosis: 1. Type 1 Diabetes: NO 2. Hyperthyroidism: NO 3. Menopause before 45: NO 4. Malnutrition: NO 5. Chronic liver disease: NO Rheumatoid Arthritis: NO Current Tobacco Use: NO RISK FACTORS HISTORY OF: Hip Fracture (Right/Left): NO Spine Fracture: NO History of Wrist Fracture: RT WRIST When: AGE 64 Surgery to Spine/Hip(right/left)/Wrist (right/left): RT HIP, SEPTEMBER 2019 Family History of Osteoporosis: NO Active: NO Diet low in dairy products/other sources of calcium: YES Postmenopausal woman: YES Take estrogen and/or progesterone medications: NO Lost more than 2 inches in height since high school: YES Frequent falls: NO Poor Health: NO Hyperparathyroidism: NO Adrenal Insufficiency: NO MEDICATIONS: Prednisone or other steroids: NO Thyroid Medications: LEV THORAX INE How Lon YEARS Osteoporosis Medications: NO Additional Medications: LIPITOR, VIT D, CALCIUM, FISH OIL, Additional History: EXAM MEASUREMENTS: Bone mineral densitometry was performed using the [employer] System. Bone mineral density as measured about the Lumbar spine is: ----- L1-L4(G/cm2): 0.790 T Score Values are as follows: ----- L1: -3.7 ----- L2: -4.1 ----- L3: -3.3 ----- L4: -2.5 ----- L1-L4: -3.2 Bone mineral density has: DECREASED 6.4 % since study of: 06/23/2018 Bone mineral density about the L hip (g/cm2): 0.830 T Score values are as follows: -----L Neck: -1.5 -----L Total: -1.2 Bone mineral density has: DECREASED 3.7 % since study of: 06/23/2018 FRAX%s: The graph provided illustrates a 8.6% chance for a major osteoporotic fx and a 0.9% chance fo r the hips probability for fx in 10 years time. IMPRESSION: Osteoporosis (T Score less than -2.5). There is increased fracture risk and therapy is usually indicated based on age. Re-Screen 1-2 years. NOTE: T-SCORE=SD OF THE YOUNG ADULT MEAN.
== END | disposition home or self-care (01) ==
LOC: RADBDWWP 07:39
PROVIDERS: ATTEND Family Medicine
DX: M81.0 Age-related osteoporosis without current pathological fracture (principal); Z78.0 Asymptomatic menopausal state
CPT/HCPCS: 77080

== ENCOUNTER → 2022-03-04 | Outpatient (CLI) | payer MEDICARE, OTHER ==
--- NOTE | 2022-03-05 07:46 | MM ---
Reason for Exam: Screening (asymptomatic). Last mammogram was performed 2 year(s) and 8 month(s) ago. Patient History: Menarche at age 16. First Full-Term at age 26. Postmenopausal. Patient has history of breast feeding. Other cancer, age 26. Risk Values: Afshan 5 year model risk: 1.7%. NCI Lifetime model risk: 6.3%. Prior Study Comparison: 01/11/2017 Bilateral Screening Mammogram, [facility]. 06/23/2018 Bilateral Screening Mammogram, [facility]. 07/13/2019 Bilateral Screening Mammogram, [facility]. Tissue Density: The breast tissue is heterogeneously dense. This may lower the sensitivity of mammography. Findings: Analyzed By CAD. There is no suspicious group of microcalcifications or new suspicious mass in either breast. Overall Assessment: Negative, BI-RAD 1 Management: Screening Mammogram of both breasts in 1 year. A clinical breast exam by your physician is recommended on an annual basis and results should be correlated with mammographic findings. Electronically signed and approved by: Deng Huang M.D. Radiologis
== END | disposition home or self-care (01) ==
LOC: RADMAMWWP 16:28
PROVIDERS: ATTEND Family Medicine
DX: Z12.31 Encounter for screening mammogram for malignant neoplasm of breast (principal); Z78.0 Asymptomatic menopausal state; Z85.89 Personal history of malignant neoplasm of other organs and systems
CPT/HCPCS: 77063; 77067

== ENCOUNTER → 2022-04-27 | Outpatient (CLI) | payer MEDICARE, OTHER ==
[2022-04-27 08:58] LABS: INR 0.9 (<1.2); Partial Thromboplastin Time 22.7 sec (22.0-30.0)
[2022-04-27 10:22] LABS: HCT 43.9 % (37.2-46.3); HGB 13.8 g/dL (12.0-15.0); MCH 29.9 pg (27.0-32.0); MCHC 31.4 g/dL (32.0-37.0); MCV 95.2 fL (80.0-97.0); Mean Platelet Volume 10.7 fL (9.5-12.2); NRBC Per 100 WBC 0 /100 WBCS (0.0-0.0); Platelet Count 246 X 10*3/uL (140-440); RBC 4.61 X 10*6/uL (4.10-5.20); RDW 13.1 % (11.5-14.5); WBC 6.77 X 10*3/uL (4.50-10.00)
[2022-04-27 10:40] LABS: Albumin 4.2 g/dL (3.8-4.9); Albumin/Globulin Ratio 1.91 (1.60-3.17); Anion Gap 8.9 mmol/L (10.00-18.00); BUN/Creat Ratio 19.18 Ratio (12.00-20.00); Blood Urea Nitrogen 21.1 mg/dL (9.0-27.0); Calcium 9.5 mg/dL (8.7-10.3); Carbon Dioxide 29.1 mmol/L (20.0-27.5); Globulin 2.2 g/dL (1.6-3.3); Non-African American GFR(CKD) 52.6 (60.0-200.0); Potassium 3.6 mmol/L (3.5-5.5); Total Protein 6.4 g/dL (6.2-8.2)
[2022-04-27 12:27] LABS: Appearance,Urine Clear (Clear); Bilirubin,Urine Negative (Negative); Blood,Urine Negative (Negative); Color,Urine Yellow (Yellow); Ketones,Urine Negative (Negative); Nitrite,Urine Negative (Negative); Specific Gravity,Urine 1.011 (1.001-1.030); Urobilinogen,Urine 0.2 (0.2,1.0)
[2022-04-27 12:33] LABS: Bacteria,Urine None Seen /HPF (None Seen)
== END | disposition home or self-care (01) ==
LOC: LABPAT 08:00
PROVIDERS: ATTEND Orthopaedic Surgery
DX: Z01.812 Encounter for preprocedural laboratory examination (principal); M16.12 Unilateral primary osteoarthritis, left hip
CPT/HCPCS: 80053; 81001; 85027; 85610; 85730; 87070

== ENCOUNTER 2022-05-05 09:35 | Day surgery (SDC) | payer MEDICARE, OTHER ==
[2022-05-03 14:40] VITALS: BMI 31.1
[~2022-05-05 09:35] MED LIST changes: -GLYCOPYRROLATE 0.2 MG/ML 2 ML VIAL ONE; -HYDROcodone/APAP 5-325MG 1 EACH TAB PO PRN; -HYDROmorphone (PF) 1 MG/ML ONE; -HYDROmorphone 0.5 MG/0.5 ML SYRINGE IVP PRN; -LACTATED RINGERS 1,000 ML IV ONE; -LIDOCAINE 1% (10MG/ML) FOR IV START INTRADERMA PRN; -LIDOCAINE 1% INJ 10MG/ML (20 ML MDV) ONE; -MIDAZOLAM 2 MG/2 ML VIAL ONE; -NALOXONE 0.4 MG/ML 1 ML VIAL IV PRN; -NEOSTIGMINE 1 MG/ML 10 ML VIAL ONE; -PROPOFOL 10 MG/ML 20 ML VIAL IV ONE; -ROCURONIUM 10 MG/ML (5 ML VIAL) IV ONE; -ROPIVACAINE 246.25 MG, EPINEPHrine 0.5 MG, KETOROLAC (30 mg/mL) 30 MG, cloNIDine HCL/PF... MISCELLANE PRN; -ROPIVACAINE/EPI/CLONIDINE/KET 50 ML SYRINGE MISCELLANE PRN; -SCOPOLAMINE 1.5MG/72HR PATCH TRANSDERM ONE; -SUCCINYLCHOLINE CHLORIDE 100 MG/5 ML SYR IV ONE; -TRANEXAMIC ACID 1,000 MG in SODIUM CHLORIDE 0.9% 100 ML IVPB ONE; -TRANEXAMIC ACID IN NACL,ISO-OS 1,000 MG/100 ML BAG ONE; -VANCOMYCIN 1,000 MG in SODIUM CHLORIDE 0.9% 250 ML IVPB PRN; -ceFAZolin 3,000 MG in SODIUM CHLORIDE 0.9% IRRIGATIO 3,000 ML IRRIGATION ONE; -diphenhydrAMINE 50 MG/ML 1 ML VIAL ONE; +fentaNYL (PF) 50 MCG/ML 2 ML AMP IV PRN; -fentaNYL (PF) 50 MCG/ML 2 ML AMP ONE; -hydrOXYzine pamoate 25 MG CAP PO PRN
[2022-05-05 10:41] LABS: Glucose,Whole Blood 99 mg/dL (70-110)
[2022-05-05] MEDS: LACTATED RINGERS 1,000 ML IV SCH ×2 (10:45→16:46)
[2022-05-05] MEDS ORDERED: MIDAZOLAM 2 MG/2 ML VIAL IV ONE ×2 (11:09→11:17)
[2022-05-05] MEDS ORDERED: fentaNYL (PF) 50 MCG/ML 2 ML AMP IV ONE ×2 (11:09→11:17)
[2022-05-05] MEDS ORDERED: SUCCINYLCHOLINE CHLORIDE 200 MG/10 ML VIAL IV ONE (11:18)
[2022-05-05] MEDS ORDERED: LIDOCAINE 2% INJ 20 MG/ML (2 ML VIAL) ONE (11:18)
[2022-05-05] MEDS ORDERED: fentaNYL (PF) 50 MCG/ML 2 ML AMP ONE (11:18)
[2022-05-05] MEDS ORDERED: ROCURONIUM 10 MG/ML (5 ML VIAL) IV ONE (11:18)
[2022-05-05] MEDS ORDERED: ePHEDrine 50 MG/ML 1 ML VIAL ONE (11:18)
[2022-05-05] MEDS ORDERED: TRANEXAMIC ACID IN NACL,ISO-OS 1,000 MG/100 ML BAG ONE (11:18)
[2022-05-05] MEDS ORDERED: NEOSTIGMINE 1 MG/ML 10 ML VIAL ONE (11:18)
[2022-05-05] MEDS ORDERED: ROPIVACAINE 5 MG/ML 30 ML VIAL ONE (11:18)
[2022-05-05] MEDS ORDERED: SODIUM CHLORIDE 0.9% (PF) 10 ML VIAL ONE (11:18)
[2022-05-05] MEDS ORDERED: GLYCOPYRROLATE 0.2 MG/ML 2 ML VIAL ONE (11:18)
[2022-05-05] MEDS ORDERED: PROPOFOL 10 MG/ML 20 ML VIAL IV ONE (11:18)
[2022-05-05] MEDS: ROPIVACAINE/EPI/CLONIDINE/KET 50 ML SYRINGE MISCELLANE PRN ×2 (12:05→13:07)
--- NOTE | 2022-05-05 13:57 | FL ---
EXAMINATION TYPE: FL guidance operating room DATE OF EXAM: 05/05/2022 HISTORY: Fluoroscopy time 35 seconds of fluoroscopy provided. IMPRESSION: 1. Fluoroscopy time.
--- NOTE | 2022-05-05 13:58 | XR ---
EXAMINATION TYPE: XR Hip Limited LT DATE OF EXAM: 05/05/2022 COMPARISON: NONE HISTORY: Postop TECHNIQUE: One view submitted. FINDINGS: There is postsurgical change in near anatomic alignment. There is soft tissue edema and emphysema. IMPRESSION: 1. Postoperative change. Appears in near-anatomic alignment.
[2022-05-05] MEDS ORDERED: ONDANSETRON 4 MG/2 ML VIAL IVP PRN (14:12)
[2022-05-05] MEDS ORDERED: hydrOXYzine pamoate 25 MG CAP PO PRN (14:12)
[2022-05-05] MEDS ORDERED: HYDROcodone/APAP 5-325MG 1 EACH TAB PO PRN ×2 (14:12)
[2022-05-05] MEDS ORDERED: NALOXONE 0.4 MG/ML 1 ML VIAL IV PRN (14:12)
[2022-05-05] MEDS ORDERED: HYDROmorphone 0.5 MG/0.5 ML SYRINGE IVP PRN ×2 (14:12)
--- NOTE | 2022-05-05 14:25 | P.OP ---
Date of Procedure: 05/05/22 Preoperative Diagnosis: 1. Severe left hip osteoarthritis 2. History of breast and ovarian cancer 3. Osteopenia Postoperative Diagnosis: Same Procedure(s) Performed: Left direct anterior total hip arthroplasty Implants: 1. [place] Trident II Acetabular Cup, Size #54 2. [place] Accolade C Size #5 Femoral Stem, Standard Offset 3. Biolox delta femoral head, 36-mm, - 5 neck Anesthesia: JAMAR, regional Surgeon: Michael Henao Geothermal Production Manager #1: Miri Cheng Estimated Blood Loss (ml): 300 IV fluids (ml): 1,200 Pathology: none sent Condition: stable Disposition: PACU Indications for Procedure: The patient is very pleasant 66-year-old female with medical history significant for breast and cervical cancer both in remission who has had a long-standing history of problems with both of her hips. She previously underwent a right total hip replacement and did very well. She presented with continued pain in her left hip and requested proceeding with hip replacement. Her x-rays showed severe hip arthritis. I had a long discussion with the patient in the office on the potential risks and complications of an elective total hip replacement through a direct anterior approach. Risks discussed include, but are certainly not limited to, risks from anesthesia, superficial infection requiring local wound care or antibiotics, deep ralph-prosthetic joint infection and the treatment required to eradicate infection, intraoperative fracture, postoperative periprosthetic fracture, damage to local blood vessels or nerves particularly the lateral femoral cutaneous nerve, delayed wound healing requiring local wound care or possibly surgical debridement, hip dislocation, leg length discrepancy, soft tissue irritation around the total hip implant such as iliopsoas tendinitis or trochanteric bursitis, wear and osteolysis from the implants, squeaking or audible noises, groin pain, thigh pain, heterotopic ossification, stiffness, aseptic loosening of the implants, dissatisfaction with surgical outcome, need for revision surgery, DVT, PE, swelling of the operative extremity, acute coronary event, stroke, failure to thrive, and possibly loss of life or limb. The patient understands that while these are the most common complications after an elective hip replacement there are certainly other less common complications possible. They were given ample time to ask questions regarding the potential complications of a hip replacement. Following our discussion the patient provided their verbal and written consent to go forward with an elective total hip replacement. Description of Procedure: The patient was identified in the preoperative holding area and the correct hip was marked with my initials. I reviewed the procedure and consent with the patient. All of their questions were answered. The patient was then brought back into the operating room by anesthesia. While on the [facility] anesthesia was administered by the anesthesia team. Preoperative antibiotics and tranexamic acid were also given. After the patient was under anesthesia I examined their ankles to determine their preoperative leg length discrepancy. The skin over the anterior aspect of the hip was shaved to remove hair over the site of planned incision. Both feet and ankles were padded with webril and boots for the [place] were applied. The patient was then carefully transferred onto the [place] table. A perineal post was immediately placed. The arms were placed on arm holders and were well-padded. Both boots were secured to the spars on the [place] table. The patient was positioned so that the pelvis was centered over the post. Nonsterile drapes were applied. A timeout was performed identifying the correct patient, operative extremity, and procedure. At this point fluoroscopy was brought in to take preoperative images of the pelvis and operative hip. Using the standing AP pelvis from the office as a template, a comparable image was obtained with fluoroscopy. A metallic bar was used to create a bi-ischial line for use as a reference to leg length adjustments during the procedure. Global offset was also measured on both the operative and nonoperative leg. Fluoroscopy was then brought out and a pre-scrub using a chlorhexidine scrub brush was performed. The operative limb was then prepped and draped in the standard sterile fashion. An anterior longitudinal incision was made lateral and distal to the ASIS. The skin and subcutaneous tissues were incised sharply. The underlying tensor fascia was identified and incised in its midportion. The fascia was dissected free from the underlying muscle and the muscle belly was retracted. A blunt tipped cobra retractor was placed over the superior neck under the muscle fibers of the gluteus minimus. The deep enveloping fascia of the tensor was incised. The anterior leash of vessels were then identified and cauterized. The fascia between the rectus and the capsule was then incised and the pre-capsular fat was excised. A second Cobra was placed inferior to the neck. The interval between the rectus and iliocapsularis and the hip capsule was developed and a retractor was placed carefully over the anterior rim of the acetabulum. A T-shaped anterior capsulotomy was performed. The superior capsular leaflet was left in place in the inferior capsular flap was excised. The Cobra retractors were placed intracapsularly. We then made a femoral neck osteotomy according to preoperative and intraoperative templating and confirmed the level of the osteotomy using fluoroscopic imaging. The femoral head was removed, passed off to the back table, and sized. The superior capsular flap was excised. Retractors were placed circumferentially exposing the acetabulum. We then circumferentially debrided the acetabulum free of labrum and osteophytes. The pulvinar was removed to fully visualize the cotyloid fossa. We then sequentially reamed to achieve peripheral fit and excellent bleeding subchondral bone. The socket was thoroughly irrigated. The acetabular component was impacted into the appropriate position using fluoroscopy to guide version, inclination, and depth of insertion taking care to have a comparable image of the AP pelvis to the standing image taken in the office. An excellent press-fit was achieved and final position was confirmed using fluoroscopy. The press fit was augmented with bony cancellus dome screws. The liner was then impacted into the socket. Attention was then turned to the femur. The remnant dorsal lateral capsule was excised. The short external rotators were visible and protected. A bone hook was used to confirm appropriate translation of the trochanter away from the acetabulum. The leg was then extended and adducted and the bone hook was used to elevate the femur for broaching. On inspection of the patient's proximal femur, they appeared to have poor bone quality so I elected to proceed with cemented fixation of the femoral component. A box osteotome and blunt tipped canal sound was then utilized to gain access to the femoral canal. We then sequentially broached the femur in appropriate anteversion until torsional stability was achieved and the implant was felt to have reached the appropriate size to allow trialing. The neck cut was brought flush to the trial broach with a calcar planar. A trial neck and head were then placed onto the broach and the hip was atraumatically reduced under direct visualization. External rotation to 90 was performed to assess stability. Fluoroscopy was brought in. An AP and lateral fluoroscopic image of the proximal femur was obtained to assess position and fill of the trial broach. An AP of the pelvis was then obtained and matched to the preoperative image taken. A bi-ischial bar was then placed and measurements were taken to assess changes in length and offset. The hip was then carefully dislocated, the proximal femur was exposed, and the trial implants were removed. The proximal femur was then prepared for cementing. The canal was thoroughly irrigated with pulsatile lavage to remove blood and marrow contents. A cement restrictor was placed to a depth just distal to the tip of the final implant. Epinephrine-soaked gauze was then packed into the proximal femur. 2 bags of cement were then mixed using a centrifuge and placed into a cement gun. Anesthesia was notified that cementing was about to commence to make sure the patient was appropriately ventilated and hydrated. Once the cement had reached appropriate consistency, the cement gun was used to fill the canal in a retrograde fashion starting at the restrictor. Cement was then pressurized into the canal with a blue tipped regional extension service specialist. The stem was then carefully introduced into the cement taking care to guide the implant into appropriate version. The stem was held in position until the cement had fully set. All extra cement was removed while the cement was hardening. The trunnion was cleansed and the final head was tapped into place to engage the Finn taper. The acetabulum was irrigated and visualized to be free of debris. The hip was carefully reduced. Stability was checked clinically with external rotation to 90 and there was no evidence of instability. Final fluoroscopic images were taken. The wound was then thoroughly irrigated and soaked with a dilute Betadine rinse for 3 minutes. 3 L of sterile saline was irrigated through the wound using pulsatile lavage. Local anesthetic cocktail was injected into the soft tissues around the surgical field. The wound was then closed in layers. A sterile dressing was placed over the surgical incision. The drapes were taken down and the patient was carefully transferred off of the [place] table. Following removal of the boots the leg lengths felt acceptable. The patient was then taken to recovery room having tolerated the procedure well. Miri Cheng PA-C was required as a skilled distribution center assistant for patient positioning, surgical exposure, retraction, placement of implants, and closure of the surgical wound. PLAN: The patient can weight-bear as tolerated on the operative extremity. 2 doses of postoperative antibiotics. DVT prophylaxis with aspirin 81 mg twice a day based on preoperative risk stratification. Physical therapy for gait training.
[2022-05-05] MEDS ORDERED: HYDROmorphone 0.5 MG/0.5 ML SYRINGE IVP ONE (15:29)
--- NOTE | 2022-05-05 16:31 | P.ANPRN ---
Procedure Note - Anesthesia - Nerve Block Performed Left Erector Spinae Single Time Out Performed: Yes (1109) Date of Procedure: 05/05/22 Procedure Start Time: 11:10 Procedure Stop Time: 11:15 Location of Patient: PreOp Indication: Acute Post-Operative Pain, Requested by Surgeon Specifically requested for management of pain by DrJoseluis: Michael Henao Sedation Type: Sedate with meaningful contact maintained Preparation: Sterile Prep Position: Sitting Catheter: None Needle Types: Pajunk Needle Gauge: 21 Ultrasound used to visualize needle placement: Yes Ultrasound used to observe medication spread: Yes Injectate: 0.5% Ropivacaine (see comment for volume) (15cc + 10cc nacl pf) Blood Aspirated: No Pain Paresthesia on Injection Noted: No Resistance on Injection: Normal Image Stored and Saved: Yes Events: Uneventful and Well Tolerated
[2022-05-05] MEDS ORDERED: LEVOTHYROXINE 112 MCG TAB PO SCH (17:15)
[2022-05-05] MEDS: LORATADINE 10 MG TAB PO SCH (17:23)
[2022-05-05] MEDS: MONTELUKAST 10 MG TAB PO SCH (17:25)
[2022-05-05] MEDS: Acetaminophen-Codeine 300-30mg TAB PO PRN ×2 (18:09→23:17)
[2022-05-05] MEDS: ASPIRIN 81 MG PO SCH (20:29)
[2022-05-05] MEDS: SENNOSIDES-DOCUSATE SODIUM 1 EACH TAB PO SCH (20:29)
[2022-05-05] MEDS ORDERED: SODIUM CHLORIDE 0.9% 1,000 ML IV ONE (20:36)
[2022-05-06] MEDS: LACTATED RINGERS 1,000 ML IV SCH ×3 (01:24→15:45)
[2022-05-06] MEDS: LEVOTHYROXINE 112 MCG TAB PO SCH (05:42)
[2022-05-06] MEDS: Acetaminophen-Codeine 300-30mg TAB PO PRN ×4 (05:43→23:12)
--- NOTE | 2022-05-06 05:48 | CONS ---
CONSULTATION REASON FOR CONSULTATION: Advice regarding hyperlipidemia, multiple medications requested by Orthopedic surgery. HISTORY OF PRESENT ILLNESS: This is a 66-year-old woman with past medical history of hyperlipidemia, multiple medical issues, and allergies, underwent left hip surgery by Orthopedic surgery. There is no history of any fever, rigors, or chills. Occasional cough is reported. PAST MEDICAL HISTORY: Reviewed include hyperlipidemia, rest of history and chart reviewed. MEDICATIONS: Lipitor, dose and rest of medications reviewed. ALLERGIES: As mentioned earlier, Vicodin, Sulfa. SOCIAL HISTORY: No history of smoking, rare alcohol. FAMILY HISTORY: No history of heart disease or strokes in the family. REVIEW OF SYSTEMS: A 14-point review is negative except as mentioned earlier. PHYSICAL EXAMINATION: VITAL SIGNS: Pulse is 80, blood pressure 110/61, respirations 16. HEENT: Conjunctivae normal. NECK: No jugular venous distention. CARDIOVASCULAR: S1, S2 muffled. RESPIRATIONS: Breath sounds diminished sounds in the bases. No rhonchi, no crackles. ABDOMEN: Soft, nontender. LEGS: No edema, status post hip surgery. NERVOUS SYSTEM: No focal deficits. LABS: Glucose 99. ASSESSMENT: 1. Status post total hip arthroplasty, left. 2. Hyperlipidemia. 3. History of degenerative joint disease. 4. Multiple medical issues. RECOMMENDATIONS: This 66-year-old woman presented after surgery. At this time, I recommended to resume the home medications, incentive spirometry, DVT prophylaxis. We will follow the patient closely, the patient may be asked to follow up with after discharge. Thank you for letting us participate in the care of this patient. MMODL / IJN: [id number] / JAKE
[2022-05-06] MEDS ORDERED: TRIAMTERENE-HCTZ 37.5-25MG 1 EACH TAB PO SCH (09:00)
[2022-05-06 09:09] LABS: Basophils # (A) 0.02 X 10*3/uL (0.00-0.10); Basophils % (A) 0.2 %; Eosinophils # (A) 0 X 10*3/uL (0.04-0.35); Eosinophils % (A) 0 %; HCT 31.2 % (37.2-46.3); HGB 10.3 g/dL (12.0-15.0); Immature Grans, Automated 0.6 %; Lymphocytes # (A) 1.45 X 10*3/uL (0.90-5.00); Lymphocytes % (A) 11.3 %; MCH 30.9 pg (27.0-32.0); MCV 93.7 fL (80.0-97.0); Mean Platelet Volume 10.4 fL (9.5-12.2); Monocytes # (A) 1.27 X 10*3/uL (0.20-1.00); Monocytes % (A) 9.9 %; NRBC Per 100 WBC 0 /100 WBCS (0.0-0.0); Neutrophils # (A) 10.05 X 10*3/uL (1.80-7.70); Platelet Count 219 X 10*3/uL (140-440); RBC 3.33 X 10*6/uL (4.10-5.20); WBC 12.87 X 10*3/uL (4.50-10.00)
[2022-05-06] MEDS: LORATADINE 10 MG TAB PO SCH (10:02)
[2022-05-06] MEDS: ASPIRIN 81 MG PO SCH ×2 (10:05→23:14)
[2022-05-06] MEDS: ATORVASTATIN 80 MG TAB PO SCH (10:05)
[2022-05-06] MEDS ORDERED: SODIUM CHLORIDE 0.9% 500 ML 500 ML IV ONE (14:22)
--- NOTE | 2022-05-06 14:46 | XR ---
EXAMINATION TYPE: XR chest 1V portable DATE OF EXAM: 05/06/2022 COMPARISON: NONE HISTORY: Shortness of breath TECHNIQUE: Single frontal view of the chest is obtained. FINDINGS: There is no focal air space opacity, pleural effusion, or pneumothorax seen. The cardiac silhouette size is within normal limits. Patient is rotated. Question some interstitial changes at t he lung bases. The osseous structures are intact. IMPRESSION: No acute process. There may be some underlying interstitial lung disease, consider follo w-up PA and lateral chest x-ray when stable.
--- NOTE | 2022-05-06 14:52 | P.PN ---
Subjective Progress Note Date: 05/06/22 This patient is a 66- year old female who is status-post left direct anterior total hip arthroplasty on 05/05/22. Today is post-operative day #1. Patient is examined bedside morning with Dr. Henao. She states the pain in her left hip is well-controlled at this time. She has been up to the bathroom with a walker. Patient states she was dizzy with ambulating. Otherwise she is doing well. Per nursing, she has been hypotensive overnight. Objective - Vital Signs Vital signs: Vital Signs Temp 99.3 F 05/06/22 13:35 Pulse 92 05/06/22 13:35 Resp 17 05/06/22 13:35 BP 104/60 05/06/22 13:35 Pulse Ox 94 L 05/06/22 13:35 FiO2 Intake & Output 05/05/22 05/06/22 05/06/22 18:59 06:59 18:59 Intake Total 900 Output Total 300 Balance 600 Weight 93.6 kg Intake: IV 900 Output: Estimated Blood Loss 300 Other: # Voids 0 2 # Bowel Movements 0 - Exam On examination, patient is sitting up in bed in no apparent distress. She is alert and orientated x 3. On inspection of the left hip, there is a clean, dry, intact Opsite dressing in place. No bleeding or drainage through the dressing. There is mild swelling of the thigh, thigh soft and compressible. Motor and sensory function is intact to the left lower extremity. Left lower extremity warm and well perfused. Calf nontender. - Labs CBC & Chem 7: 05/06/22 06:26 Labs: Abnormal Lab Results - Last 24 Hours (Table) 05/06/22 Range/Units 06:26 WBC 12.87 H (4.50-10.00) X 10*3/uL RBC 3.33 L (4.10-5.20) X 10*6/uL Hgb 10.3 L (12.0-15.0) g/dL Hct 31.2 L (37.2-46.3) % Immature Gran # 0.08 H (0.00-0.04) X 10*3/uL Neutrophils # 10.05 H (1.80-7.70) X 10*3/uL Monocytes # 1.27 H (0.20-1.00) X 10*3/uL Eosinophils # 0 L (0.04-0.35) X 10*3/uL Assessment and Plan Assessment: Left direct anterior total hip arthroplasty on 05/05/22. Post-operative day #1. Plan: - Weight bear to tolerance on operative extremity with a walker. - Physical therapy for gait and balance training. - Keep surgical dressing in place. - Pain management as needed. - Aspirin 81mg BID for DVT prophylaxis. - Internal medicine consulted for ralph-operative medical management. - Anticipate discharge home with home health care tomorrow.
[2022-05-06] MEDS: SODIUM CHLORIDE 0.9% 1,000 ML IV SCH (15:44)
[2022-05-06 17:55] LABS: Appearance,Urine Clear (Clear); Bilirubin,Urine Negative (Negative); Blood,Urine Negative (Negative); Color,Urine Light Yellow; Glucose,Urine (UA) Negative (Negative); Ketones,Urine Negative (Negative); Leukocyte Esterase,Urine Negative (Negative); Nitrite,Urine Negative (Negative); Protein,Urine Negative (Negative); Urobilinogen,Urine <2.0 mg/dL (<2.0)
[2022-05-06] MEDS: MONTELUKAST 10 MG TAB PO SCH (23:14)
[2022-05-06] MEDS: SENNOSIDES-DOCUSATE SODIUM 1 EACH TAB PO SCH (23:14)
[2022-05-07] MEDS: HYDROmorphone 0.5 MG/0.5 ML SYRINGE IVP PRN ×2 (02:41→09:00)
[2022-05-07] MEDS: Acetaminophen-Codeine 300-30mg TAB PO PRN ×2 (05:32→12:14)
[2022-05-07] MEDS: LEVOTHYROXINE 112 MCG TAB PO SCH (05:33)
[2022-05-07] MEDS: ATORVASTATIN 80 MG TAB PO SCH (08:59)
[2022-05-07] MEDS: ASPIRIN 81 MG PO SCH (08:59)
[2022-05-07] MEDS ORDERED: ALLEGRA 180 MG PO SCH (09:00)
[2022-05-07 09:50] LABS: African American GFR (CKD) 89.7 (60.0-200.0); Albumin 3.2 g/dL (3.8-4.9); Albumin/Globulin Ratio 1.78 (1.60-3.17); Anion Gap 8.3 mmol/L (10.00-18.00); BUN/Creat Ratio 14.63 Ratio (12.00-20.00); Blood Urea Nitrogen 11.7 mg/dL (9.0-27.0); Calcium 8.4 mg/dL (8.7-10.3); Carbon Dioxide 22.7 mmol/L (20.0-27.5); Globulin 1.8 g/dL (1.6-3.3); Non-African American GFR(CKD) 77.4 (60.0-200.0); Potassium 3.5 mmol/L (3.5-5.5); Total Bilirubin 1.6 mg/dL (0.30-1.20)
[2022-05-07] MEDS: SODIUM CHLORIDE 0.9% 1,000 ML IV SCH (12:06)
--- NOTE | 2022-05-07 12:43 | P.DS ---
Providers Expected date of discharge: 05/07/22 Attending physician: Michael Henao Consults: 05/05/22 14:12 Consult Physician Routine Consulting Provider: Alla Sweet Consult Reason/Comments: medical management Do you want consulting provider notified?: Yes Primary care physician: Srini Abbott [facility] Course: This is a 66-year-old female with known history of degenerative arthritis of the left hip. The patient presents for evaluation. After discussion and consideration patient elects to proceed with a direct anterior left total hip arthroplasty on 05/05/22. The patient is seen preoperatively by Dr. Abbott and cleared for surgery. Patient is admitted to [facility] on 05/05/22 for direct anterior left total hip arthroplasty. The procedures performed without complication or sequelae. The patient is doing well on post-op day #2. Labs and vital signs are stable on day of discharge. Patient is examined bedside this morning with Dr. Henao. She states the pain in her hip is well-controlled. She is ambulating with a walker with minimal assistance. Patient would like to return home today. She overall feels well. On examination, patient is sitting up in bed in no apparent distress. She is alert and orientated x3. On inspection of the left hip, there is a clean, dry, intact Opsite dressing in place. Motor and sensory function intact LLE. Femoral nerve function intact. LLE warm and well perfused. Calf nontender. Patient is discharged to home with home physical therapy in good condition, pending medical clearance. Please see med rec for accurate list of discharge medications. Patient should follow-up in the office in two weeks with Dr. Henao. Plan - Discharge Summary Discharge Rx Participant: No New Discharge Prescriptions: New Aspirin 81 mg PO BID 30 Days #60 tab Omeprazole 40 mg PO DAILY 30 Days #30 cap Acetaminophen-Codeine 300-30mg [Tylenol w/codeine #3] 1 tab PO Q4-6H PRN 7 Days #32 tablet PRN Reason: Pain Docusate [Colace] 100 mg PO BID #60 capsule No Action Montelukast Sodium [Singulair] 10 mg PO HS Atorvastatin [Lipitor] 80 mg PO QAM Fexofenadine HCl [Maddi Allergy] 180 mg PO DAILY Acetaminophen [Tylenol Extra Strength] 500 mg PO Q6H PRN PRN Reason: Pain Triamterene/Hydrochlorothiazid [Triamterene-Hctz 37.5-25 mg Tb] 1 each PO Q48H Levothyroxine Sodium 112 mcg PO QAM Discharge Medication List Acetaminophen [Tylenol Extra Strength] 500 mg PO Q6H PRN 09/28/21 [History] Atorvastatin [Lipitor] 80 mg PO QAM 09/28/21 [History] Fexofenadine HCl [Maddi Allergy] 180 mg PO DAILY 09/28/21 [History] Montelukast Sodium [Singulair] 10 mg PO HS 09/28/21 [History] Triamterene/Hydrochlorothiazid [Triamterene-Hctz 37.5-25 mg Tb] 1 each PO Q48H 09/28/21 [History] Levothyroxine Sodium 112 mcg PO QAM 05/03/22 [History] Acetaminophen-Codeine 300-30mg [Tylenol w/codeine #3] 1 tab PO Q4-6H PRN 7 Days #32 tablet 05/06/22 [Rx] Aspirin 81 mg PO BID 30 Days #60 tab 05/06/22 [Rx] Docusate [Colace] 100 mg PO BID #60 capsule 05/06/22 [Rx] Omeprazole 40 mg PO DAILY 30 Days #30 cap 05/06/22 [Rx] Follow up Appointment(s)/Referral(s): [facility], [NON-STAFF] - 1-2 Days ([facility] will call you to schedule your in home physical therapy visits. ) Michael Henao MD [Medical Doctor] - 05/18/22 1:30 pm Ambulatory/Diagnostic Orders: Basic Metabolic Panel [LAB.AMB] Time Frame: 2 Days, Location: None Selected Complete Blood Count w/diff [LAB.AMB] Time Frame: 2 Days, Location: None Selected Patient Instructions/Handouts: Anterior Hip Replacement (DC) Activity/Diet/Wound Care/Special Instructions: Weight bear as tolerated on operative extremity with a walker. Keep operative dressing intact until follow-up appointment in the office. Call the office if dressing becomes saturated or falls off. Take pain medication as prescribed. Take aspirin 81mg BID x 4 weeks for blood clot prevention. Follow-up in the office in two weeks with Dr. Henao. Call the office with any questions or concerns, Follow-up with primary care provider and repeat labs in the next few days Continue incentive spirometer at least 10 times every hour while awake When getting up out of the chair or bed get up slowly and sit at the edge for the first 2 minutes and then get up slowly and proceed with walking Discharge Disposition: HOME WITH HOME HEALTH SERVICES
[2022-05-07 13:45] VITALS: BP 102/63; PULSE 103; RESP 16; TEMP 97.8
--- NOTE | 2022-05-07 20:17 | PN ---
PROGRESS NOTE DATE OF SERVICE: 05/06/2022 HISTORY OF PRESENT ILLNESS: This 66-year-old woman was admitted after left hip joint arthroplasty, had some hypotension last night. The patient also complains of dizziness also. No chest pain. No palpitation. No fever. The hemoglobin is 10.3, and the patient is closely monitored at this time. PAST MEDICAL HISTORY: Reviewed. REVIEW OF SYSTEMS: Fourteen-point review is negative as mentioned earlier. CURRENT MEDICATIONS: Reviewed include Dilaudid. Rest of the medications noted. PHYSICAL EXAMINATION: VITAL SIGNS: Pulse is 92, blood pressure 104/60, respirations 17. HEENT: Conjunctivae are normal. NECK: No jugular venous distention. CARDIOVASCULAR: S1 and S2. RESPIRATORY: Breath sounds diminished at the bases. No rhonchi. No crackles. ABDOMEN: Soft. LEGS: Status post surgery. NERVOUS SYSTEM: Nonfocal. LABS: Reviewed. WBC 12.7. ASSESSMENT: 1. Status post total hip joint arthroplasty, left. 2. Relative hypotension. 3. Hyperlipidemia. 4. History of degenerative joint disease. 5. Multiple medical issues. RECOMMENDATIONS: Recommend to continue current medications and symptomatic treatment. Otherwise, the patient has received bolus IV fluids. I would recommend repeat bolus and continuous IV fluids. Repeat labs. I also recommend set of troponins and EKG also. Otherwise, closely follow with Orthopedic Surgery. See orders for further details. MMODL / IJN: [id number] /
--- NOTE | 2022-05-08 02:11 | PN ---
PROGRESS NOTE DATE OF SERVICE: 05/07/2022 SUBJECTIVE: This is a 66-year-old woman, who was admitted after left total hip joint arthroplasty, is improving significantly. No chest pain. No palpitation. OBJECTIVE: VITAL SIGNS: Pulse is 98, blood pressure 108/60, respirations 16. CHEST: Clear to auscultation. CARDIOVASCULAR: S1, S2 normal. ABDOMEN: Soft. LEGS: Status post surgery. LABS: Reviewed. ASSESSMENT: 1. Status post left total hip joint arthroplasty. 2. Hyperlipidemia. 3. History of degenerative joint disease. 4. Multiple medical issues. RECOMMENDATIONS: Recommend to continue current medications and symptomatic treatment. Resume the home medications. DVT prophylaxis per Orthopedic Surgery. Closely follow with primary physician after discharge. MMODL / IJN: [id number] /
== END 2022-05-07 14:55 | disposition home health service (06) ==
LOC: OR 09:35 → 4SSUR 15:13 → OR 05-07 14:55
PROVIDERS: ATTEND Orthopaedic Surgery
DX: M16.12 Unilateral primary osteoarthritis, left hip (principal); M85.80 Other specified disorders of bone density and structure, unspecified site; E78.5 Hyperlipidemia, unspecified; Z88.1 Allergy status to other antibiotic agents; Z88.5 Allergy status to narcotic agent; Z85.43 Personal history of malignant neoplasm of ovary
CPT/HCPCS: 93005; 97116; 97161; 64999; 80053; 84484; 85025; 81003; 73501; 71045; 27130; C1776; C1713; J2250; J0330; J1100; J2710; J0690 ×2; J2405; J3010; J2795; J1885; J2704; J1170 ×3; J2001; 86850; 86900; 86901

== ENCOUNTER → 2023-03-07 | Outpatient (CLI) | payer MEDICARE, OTHER ==
--- NOTE | 2023-03-08 08:09 | MM ---
Reason for Exam: Screening (asymptomatic). Last screening mammogram was performed 12 month(s) ago. Patient History: Menarche at age 16. First Full-Term at age 26. Postmenopausal. Patient has history of breast feeding. Other cancer, age 26. Risk Values: Afshan 5 year model risk: 1.7%. NCI Lifetime model risk: 6.1%. Prior Study Comparison: 06/23/2018 Bilateral Screening Mammogram, [facility]. 07/13/2019 Bilateral Screening Mammogram, [facility]. 03/04/2022 Bilateral MG 3D screening mammo w/cad, [facility]. Tissue Density: The breast tissue is heterogeneously dense. This may lower the sensitivity of mammography. Findings: Analyzed By CAD. There is no suspicious group of microcalcifications or new suspicious mass in either breast. Overall Assessment: Negative, BI-RAD 1 Management: Screening Mammogram of both breasts in 1 year. . Patient should continue monthly self-breast exams. A clinical breast exam by your physician is recommended on an annual basis. This exam should not preclude additional follow-up of suspicious palpable abnormalities. Note on Afshan scores and lifetime risk: 1. A Afshan score greater than 3% is considered moderate risk. If this is the case, consider specialist referral to assess eligibility for a risk reducing agent. 2. If overall lifetime risk for the development of breast cancer is 20% or higher, the patient may qualify for future screening with alternating mammogram and breast MRI. Electronically signed and approved by: Deng Huang M.D. Radiologis
== END | disposition home or self-care (01) ==
LOC: RADMAMWWP 07:25
PROVIDERS: ATTEND Family Medicine
DX: Z12.31 Encounter for screening mammogram for malignant neoplasm of breast (principal); Z78.0 Asymptomatic menopausal state
CPT/HCPCS: 77063; 77067

== ENCOUNTER → 2023-05-09 | Outpatient (CLI) | payer MEDICARE, OTHER ==
[2023-05-09 10:26] LABS: INR 0.9 (<1.2); Partial Thromboplastin Time 24.1 sec (22.0-30.0); Prothrombin Time 10.2 sec (10.0-12.5)
[2023-05-09 16:26] LABS: ALT 34 U/L (8-44); AST 32 U/L (13-35); Albumin 4.2 d/dL (3.8-4.9); Albumin/Globulin Ratio 1.83 Ratio (1.60-3.17); Alkaline Phosphatase 95 U/L (41-126); BUN/Creat Ratio 17.11 Ratio (12.00-20.00); Blood Urea Nitrogen 15.4 mg/dL (9.0-27.0); Carbon Dioxide 28.1 mmol/L (21.6-31.8); Chloride 102 mmol/L (96-109); Globulin 2.3 d/dL (1.6-3.3); Glucose 91 mg/dL (70-110); Sodium 142 mmol/L (135-145); Total Bilirubin 1.1 mg/dL (0.3-1.2); Total Protein 6.5 d/dL (6.2-8.2)
[2023-05-09 16:50] LABS: Appearance,Urine Clear (Clear); Bilirubin,Urine Negative (Negative); Blood,Urine Negative (Negative); Color,Urine Yellow (Yellow); Ketones,Urine Negative (Negative); Nitrite,Urine Negative (Negative); Specific Gravity,Urine 1.009 (1.001-1.030); Urobilinogen,Urine 0.2 E.U./DL
[2023-05-09 16:55] LABS: HGB 14.1 d/dL (12.0-15.0); MCH 30.7 pg (27.0-32.0); MCV 95.7 FL (80.0-97.0); Mean Platelet Volume 10.3 FL (9.5-12.2); NRBC Per 100 WBC 0 X 10*3/uL (0.00-0.01); Platelet Count 239 X 10*3/uL (140-440); RDW 12.1 % (11.5-14.5); WBC 5.23 X 10*3/uL (4.50-10.00)
[2023-05-09 16:58] LABS: Bacteria,Urine None Seen (None Seen)
== END | disposition home or self-care (01) ==
LOC: LABWHC1 08:11
PROVIDERS: ATTEND Orthopaedic Surgery
DX: Z01.818 Encounter for other preprocedural examination (principal); M17.11 Unilateral primary osteoarthritis, right knee; R00.1 Bradycardia, unspecified
CPT/HCPCS: 36415; 80053; 81001; 85027; 85610; 85730; 87070; 93005

== ENCOUNTER 2023-06-03 05:40 | Inpatient (IN) | payer MEDICARE, OTHER ==
[2023-05-30 14:24] VITALS: BMI 31.1
[~2023-06-03 05:40] MED LIST changes: -ACETAMINOPHEN TAB 500 MG TAB PO PRN; -DEXAMETHASONE SOD PHOSPHATE 10 MG/ML 1 ML VIAL IV PRN; -DEXAMETHASONE SOD PHOSPHATE 4 MG/ML 1 ML VIAL IV ONE; -DOCUSATE 100 MG CAP PO PRN; -FAMOTIDINE 20 MG/2 ML VIAL IVP PRN; -KETOROLAC 15 MG/ML 1 ML VIAL IVP PRN; -ONDANSETRON 4 MG/2 ML VIAL IVP ONE; -ONDANSETRON 4 MG/2 ML VIAL IVP PRN; +ROPIVACAINE/EPI/CLONIDINE/KET 50 ML SYRINGE MISCELLANE PRN; -TRANEXAMIC ACID IN NACL,ISO-OS 1,000 MG in SALINE 1 100ML.BAG IVPB PRN; -fentaNYL (PF) 50 MCG/ML 2 ML AMP IV PRN; -oxyCODONE ER 10 MG TAB.ER.12H PO PRN
[2023-06-03] MEDS ORDERED: ONDANSETRON 4 MG/2 ML VIAL IVP PRN ×2 (06:00→10:25)
[2023-06-03] MEDS ORDERED: TRANEXAMIC 1,000 MG/100ML-NACL 1,000 MG in SALINE 1 100ML.BAG IVPB PRN (06:00)
[2023-06-03] MEDS ORDERED: LIDOCAINE 1% (10MG/ML) FOR IV START INTRADERMA PRN (06:00)
[2023-06-03] MEDS ORDERED: ONDANSETRON 4 MG/2 ML VIAL IVP ONE (06:00)
[2023-06-03] MEDS ORDERED: DOCUSATE 100 MG CAP PO PRN (06:00)
[2023-06-03] MEDS ORDERED: FAMOTIDINE 20 MG/2 ML VIAL IVP PRN (06:00)
[2023-06-03] MEDS ORDERED: TRANEXAMIC 1,000 MG/100ML-NACL 1,000 MG in SALINE 1 100ML.BAG IV PRN (06:00)
[2023-06-03] MEDS ORDERED: KETOROLAC 15 MG/ML 1 ML VIAL IVP PRN (06:00)
[2023-06-03] MEDS ORDERED: ACETAMINOPHEN TAB 500 MG TAB PO PRN (06:00)
[2023-06-03] MEDS ORDERED: oxyCODONE ER 10 MG TAB.ER.12H PO PRN (06:00)
[2023-06-03] MEDS ORDERED: MIDAZOLAM 2 MG/2 ML VIAL IV PRN (06:00)
[2023-06-03] MEDS ORDERED: DEXAMETHASONE SOD PHOSPHATE 4 MG/ML 1 ML VIAL IV ONE (06:00)
[2023-06-03] MEDS ORDERED: DEXAMETHASONE SOD PHOSPHATE 10 MG/ML 1 ML VIAL IV PRN (06:00)
[2023-06-03] MEDS ORDERED: LACTATED RINGERS 1,000 ML IV ONE ×2 (07:00→09:32)
[2023-06-03] MEDS ORDERED: MIDAZOLAM 2 MG/2 ML VIAL IVP ONE (07:08)
[2023-06-03] MEDS ORDERED: ROCURONIUM 10 MG/ML (5 ML VIAL) IV ONE (07:29)
[2023-06-03] MEDS ORDERED: SUCCINYLCHOLINE CHLORIDE 200 MG/10 ML VIAL IV ONE (07:29)
[2023-06-03] MEDS ORDERED: NEOSTIGMINE 1 MG/ML 10 ML VIAL ONE (07:29)
[2023-06-03] MEDS ORDERED: GLYCOPYRROLATE 0.2 MG/ML 2 ML VIAL ONE (07:29)
[2023-06-03] MEDS ORDERED: LIDOCAINE 1% INJ 10MG/ML (20 ML MDV) ONE (07:29)
[2023-06-03] MEDS ORDERED: ROPIVACAINE 5 MG/ML 30 ML VIAL ONE (07:29)
[2023-06-03] MEDS ORDERED: fentaNYL (PF) 50 MCG/ML 2 ML AMP ONE (07:29)
[2023-06-03] MEDS ORDERED: HYDROmorphone (PF) 1 MG/ML ONE (07:29)
[2023-06-03] MEDS ORDERED: DEXAMETHASONE SOD PHOSPHATE 4 MG/ML 1 ML VIAL ONE (07:29)
[2023-06-03] MEDS ORDERED: TRANEXAMIC 1,000 MG/100ML-NACL PREMIX BAG ONE (07:29)
[2023-06-03] MEDS ORDERED: MIDAZOLAM 2 MG/2 ML VIAL ONE (07:29)
[2023-06-03] MEDS ORDERED: PHENYLEPHRINE-0.9% NACL SYG 1,000 MCG/10 ML SYRINGE ONE (07:29)
[2023-06-03] MEDS ORDERED: PROPOFOL 10 MG/ML 20 ML VIAL IV ONE (07:29)
[2023-06-03] MEDS ORDERED: ePHEDrine 50 MG/ML 1 ML VIAL ONE (07:29)
[2023-06-03] MEDS ORDERED: diazePAM 5 MG TAB PO PRN (10:25)
[2023-06-03] MEDS ORDERED: HYDROcodone/APAP 5-325MG 1 EACH TAB PO PRN (10:25)
[2023-06-03] MEDS ORDERED: NA PHOS,M-B/NA PHOS,DI-BA 133 ML ENEMA RECTAL PRN (10:25)
[2023-06-03] MEDS ORDERED: bisacodyL 10 MG SUPP RECTAL PRN (10:25)
[2023-06-03] MEDS ORDERED: NALOXONE 0.4 MG/ML 1 ML VIAL IV PRN (10:25)
[2023-06-03] MEDS ORDERED: MAGNESIUM HYDROXIDE 2,400 MG/30 ML CUP PO PRN (10:25)
--- NOTE | 2023-06-03 10:25 | P.OP ---
Date of Procedure: 06/03/23 Preoperative Diagnosis: 1. Severe right knee osteoarthritis Postoperative Diagnosis: Same Procedure(s) Performed: 1. Right total knee arthroplasty 2. Computer assisted musculoskeletal navigation using CT/MRI images Implants: 1. [place] [employer] CR Femur Size #5 2. [place] [employer] [place] Tibial Base Size #5 3. [place] [employer] CS poly Size #5, 9-mm 4. [place] [employer] all poly patella, Size #35 Anesthesia: JAMAR, regional Surgeon: Michael Henao Estimated Blood Loss (ml): 100 IV fluids (ml): 850 Pathology: none sent Condition: stable Disposition: PACU Indications for Procedure: I met with the patient preoperatively in the office setting and discussed treatment of their symptomatic knee arthritis. They failed a long course of nonsurgical treatment and elected to proceed with an elective total knee replac ement. I discussed the potential risks and complications at length and gave them ample time to ask questions. Risks discussed included: risks from anesthesia, superficial site surgical infection, acute and/or chronic periprosthetic joint infection, delayed wound healing, drainage, wound necrosis, instability, stiffness, stiffness requiring manipulation and/or revision surgery, damage to local blood vessels or nerves, aseptic loosening of the implants, extensor mechanism issues including disruption, patellar maltracking, avascular necrosis etc., continued or worsened knee pain, generalized di ssatisfaction with surgical outcome, need for revision surgery, an inability to regain preinjury level of function, DVT, PE, other medical complications, and possibly loss of life or limb. The patient voiced their understanding that while these are the most common complications other less common complications are possible. They provided both their verbal and written consent to go forward with surgery. Operative Findings: Severe full-thickness cartilage loss in the lateral compartment and on both the medial lateral facet of the patella. There was partial-thickness cartilage loss on the posterior aspect of the medial femoral condyle and femoral trochlea. Description of Procedure: The patient was identified in preoperative holding and the correct operative extremity was verified and marked with a marker. I reviewed the consent form with the patient at length. All of their questions were answered. The patient was given a block by anesthesia. They were then brought back to the operating room. They were transferred onto the operating room table where a general anesthetic, preoperative antibiotics, and tranexamic acid were administered by anesthesia. A tourniquet was applied to the proximal aspect of the operative extremity. The contralateral extremity was padded under the heel and secured to the operating room table with a nonsterile blue towel and tape. The ipsilateral arm was carefully draped across the patient's chest and secured with a pillow and foam. A post was applied over the lateral aspect of the ipsilateral thigh and a bolster was placed under the ipsilateral foot. I verified that the operative extremity was stable and the knee was flexed to 90. The operative extremity was then placed in a leg wong, nonsterile drapes were applied, and the extremity was prepped and draped sterilely in the standard sterile fashion. Prior to starting surgery timeout was performed identifying the correct patient, operative extremity, and procedure. The leg was then elevated, exsanguinated with an Esmarch bandage, and the tourniquet was inflated. An anterior midline incision was made sharply with a scalpel. Once I had dissected deep to the superficial fascial layer medial and lateral flaps were elevated. A medial parapatellar arthrotomy was created. Upon opening the knee joint there were diffuse arthritic changes in all 3 compartments. The anterior horn of the medial meniscus were sharply released and a medial release was performed around the posterior medial corner of the knee to facilitate retractor placement. The fat pad was excised with electrocautery. The patella was found to be severely arthritic and a provisional cut was made with a sagittal saw to facilitate mobilization of the extensor mechanism during the procedure. Remnants of the ACL and PCL were then excised from the notch. 4 mm pins were then placed within the incision in the medial distal femur and proximal tibia. Arrays were applied to the pins and I verified they were completely tightened. The knee was then registered with the [employer] robot and manipulations in implant position were made to balance the knee and opitmize implant position. Using the [employer] robotic saw all cuts were made in accordance with our plan. After all bony fragments had been removed the cuts were verified with the planar probe. The tibia was then subluxed forward and sized. The knee was brought into flexion and a lamina knife machine operator was placed to allow removal of the meniscal remnants both medially and laterally as well as posterior osteophytes. Local anesthetic was then infiltrated around the joint capsule. Trial implants were then placed within the knee. Range of motion and collateral ligament tension was then evaluated. Adjustments in implant size and position were then made accordingly. Once the knee was felt to be appropriately balanced the Klaus pins were removed. The patella was then recut, sized, and punched. A trial patellar button was then placed. With the trial components in place, the patella tracked midline. The femur was then drilled and the trial component removed. The trial tibial component was then appropriately rotated, pinned, and prepared for the keel. All trial components were then removed from the knee. The knee was thoroughly irrigated with pulsatile lavage. Cement was prepared via vacuum mixing in a bowl on the back table. I then hand pressurized cement into the femur and tibia and placed the implants beginning with the tibial base tray and poly liner, femoral component, and finally the patellar button. All extruded cement was removed including from the pin sites. Once the cement had hardened the knee was evaluated one final time with the final polyethylene liner in place. The knee had full extension and flexion and felt stable to varus and valgus stress throughout the arc of motion. The tourniquet was released and with the tourniquet down the patella tracked midline. All bleeders were controlled with electrocautery. The knee was then soaked for 3 minutes with a dilute Betadine soak. The knee was thoroughly irrigated using 3 L of sterile saline and pulsatile lavage. A deep drain was placed. The extensor mechanism was then reapproximated using pop off Vicryl sutures followed by a running barbed suture. The knee was then closed in layers with a 0 strata fix for the deep fascial layer, 2-0 strata fix for the superficial subcutaneous layer and Monocryl and Steri-Strips for the skin. A sterile dressing and drain sponge were applied. I verified that all instrument, sponge, and sharp counts were correct. The patient was then transferred off the operating room table, extubated, and brought to recovery having tolerated the procedure well. PLAN: The patient can weight-bear as tolerated on the operative extremity. DVT prophylaxis with aspirin 81 mg twice a day based on preoperative risk stratification. Follow-up in the office in 2 weeks for wound check and x-rays of the knee including an AP and lateral.
[2023-06-03] MEDS ORDERED: HYDROmorphone 0.5 MG/0.5 ML SYRINGE IVP ONE (10:43)
--- NOTE | 2023-06-03 11:05 | XR ---
EXAMINATION TYPE: XR knee limited RT DATE OF EXAM: 06/03/2023 COMPARISON: NONE TECHNIQUE: Two views submitted HISTORY: Post op FINDINGS: There is a prosthetic knee in near anatomic alignment. There is soft tissue edema and soft tissue e mphysema. IMPRESSION: 1. Postoperative change. Appears in near-anatomic alignment
[2023-06-03] MEDS: HYDROmorphone 0.5 MG/0.5 ML SYRINGE IVP PRN ×3 (11:15→11:28)
[2023-06-03] MEDS: LACTATED RINGERS 1,000 ML IV SCH (13:13)
[2023-06-03] MEDS: SODIUM CHLORIDE 0.9% 1,000 ML IV SCH ×2 (13:13→16:59)
[2023-06-03] MEDS: HYDROcodone/APAP 10-325MG 1 EACH TAB PO PRN ×3 (13:41→23:11)
[2023-06-03] MEDS: hydrOXYzine pamoate 25 MG CAP PO PRN ×3 (13:42→23:11)
[2023-06-03] MEDS: SENNOSIDES-DOCUSATE SODIUM 1 EACH TAB PO SCH (20:51)
[2023-06-03] MEDS: ASPIRIN 81 MG PO SCH (20:51)
[2023-06-04] MEDS: hydrOXYzine pamoate 25 MG CAP PO PRN ×3 (04:03→17:14)
[2023-06-04] MEDS: HYDROcodone/APAP 10-325MG 1 EACH TAB PO PRN ×3 (04:03→16:02)
[2023-06-04] MEDS: SODIUM CHLORIDE 0.9% 1,000 ML IV SCH ×2 (05:17→17:05)
[2023-06-04] MEDS: LACTATED RINGERS 1,000 ML IV SCH (05:17)
--- NOTE | 2023-06-04 08:34 | P.DS ---
Providers Date of admission: 04/03/2023 Attending physician: Michael Henao Consults: 06/03/23 10:25 Consult Physician Routine Consulting Provider: Alla Sweet Consult Reason/Comments: post op medical management Do you want consulting provider notified?: Yes Primary care physician: Srini Abbott [facility] Course: Very pleasant healthy 67-year-old female who was admitted under my care yest caden and underwent an uncomplicated right total knee replacement. Following surgery she was transferred to the orthopedic floor in stable condition. She received 2 doses of postoperative antibiotics. She was transitioned from IV to oral pain medication. She was seen and evaluated by physical therapy. She was also seen and evaluated by internal medicine. Her Hemovac drain was pulled on postoperative day #1. She ultimately did well and requested discharge home on postoperative day #1. Plan - Discharge Summary Discharge Rx Participant: No New Discharge Prescriptions: New Aspirin 81 mg PO BID 30 Days #60 tab Diclofenac Sodium [Voltaren] 75 mg PO BID 30 Days #60 tab HYDROcodone/APAP 5-325MG [Telephone 5-325] 1 - 2 tab PO Q6HR PRN #32 tab PRN Reason: Pain Docusate [Colace] 100 mg PO BID #28 capsule Omeprazole [PriLOSEC] 40 mg PO DAILY #30 cap No Action Atorvastatin [Lipitor] 80 mg PO QAM Fexofenadine HCl [Maddi Allergy] 180 mg PO DAILY Acetaminophen [Tylenol Extra Strength] 1,000 mg PO Q6H PRN PRN Reason: Pain Sodium Chloride [Saline Mist] 1 spray EA NOSTRIL DAILY PRN PRN Reason: Nasal congestion Levothyroxine Sodium 112 mcg PO QAM Ubrogepant [Ubrelvy] 100 mg PO BID PRN PRN Reason: Migraine Headache Discharge Medication List Acetaminophen [Tylenol Extra Strength] 1,000 mg PO Q6H PRN 09/28/21 [History] Atorvastatin [Lipitor] 80 mg PO QAM 09/28/21 [History] Fexofenadine HCl [Maddi Allergy] 180 mg PO DAILY 09/28/21 [History] Levothyroxine Sodium 112 mcg PO QAM 05/03/22 [History] Sodium Chloride [Saline Mist] 1 spray EA NOSTRIL DAILY PRN 05/30/23 [History] Ubrogepant [Ubrelvy] 100 mg PO BID PRN 05/31/23 [History] Aspirin 81 mg PO BID 30 Days #60 tab 06/04/23 [Rx] Diclofenac Sodium [Voltaren] 75 mg PO BID 30 Days #60 tab 06/04/23 [Rx] Docusate [Colace] 100 mg PO BID #28 capsule 06/04/23 [Rx] HYDROcodone/APAP 5-325MG [Telephone 5-325] 1 - 2 tab PO Q6HR PRN #32 tab 06/04/23 [Rx] Omeprazole [PriLOSEC] 40 mg PO DAILY #30 cap 06/04/23 [Rx] Follow up Appointment(s)/Referral(s): Michael Henao MD [Medical Doctor] - 2 Weeks Activity/Diet/Wound Care/Special Instructions: 1. Weight-bear as tolerated on your operative extremity unless instructed oth erwise. Use a walker or other assistive device to ambulate. 2. Leave surgical dressing in place. If your dressing becomes saturated with blood, there is drainage, or the dressing becomes loose please contact the office. 3. It is okay to shower with your surgical dressing, but do not submerge in water (no hot tubs, bath's, swimming etc.) 4. Make sure to take her blood clot prevention medication as prescribed (aspirin, Eliquis, Xarelto, and Plavix are commonly prescribed medications for blood clot prevention) 5. While taking Telephone or Percocet for pain make sure you're taking a stool softener (Colace) and drink lots of water. 6. Keep all follow-up appointments as scheduled. You will usually be seen in 1-2 weeks following surgery. 7. Please contact the office with any questions or concerns [phone] Discharge Disposition: HOME SELF-CARE
[2023-06-04] MEDS: ASPIRIN 81 MG PO SCH ×2 (08:40→20:59)
[2023-06-04] MEDS ORDERED: NON FORMULARY DRUG (Ubrogepant [Ubrelvy] 100 MG Tablet) PO PRN (08:47)
[2023-06-04 09:09] LABS: Basophils # (A) 0.01 X 10*3/uL (0.00-0.10); Basophils % (A) 0.1 %; Eosinophils # (A) 0 X 10*3/uL (0.04-0.35); Eosinophils % (A) 0 %; HCT 33.9 % (37.2-46.3); HGB 10.8 g/dL (12.0-15.0); Lymphocytes # (A) 1.61 X 10*3/uL (0.90-5.00); Lymphocytes % (A) 13.1 %; MCHC 31.9 g/dL (32.0-37.0); MCV 94.2 FL (80.0-97.0); Mean Platelet Volume 10.2 FL (9.5-12.2); Monocytes # (A) 1.14 X 10*3/uL (0.20-1.00); Monocytes % (A) 9.3 %; NRBC Per 100 WBC 0 X 10*3/uL (0.00-0.01); Neutrophils % (A) 77.3 %; Platelet Count 204 X 10*3/uL (140-440); RDW 12.3 % (11.5-14.5); WBC 12.29 X 10*3/uL (4.50-10.00)
[2023-06-04] MEDS: LORATADINE 10 MG TAB PO SCH (09:20)
[2023-06-04] MEDS: ATORVASTATIN 80 MG TAB PO SCH (09:20)
[2023-06-04] MEDS: LEVOTHYROXINE 112 MCG TAB PO SCH (09:20)
[2023-06-04] MEDS: HYDROmorphone 0.5 MG/0.5 ML SYRINGE IVP PRN ×5 (11:13→23:52)
--- NOTE | 2023-06-04 11:21 | P.ANPRN ---
Procedure Note - Anesthesia - Nerve Block Performed Left Adductor Canal Single Time Out Performed: Yes Date of Procedure: 06/03/23 Procedure Start Time: :07 Procedure Stop Time: :09 Location of Patient: PreOp Indication: Acute Post-Operative Pain, Requested by Surgeon Sedation Type: Sedate with meaningful contact maintained Preparation: Sterile Prep Position: Supine Needle Types: Pajunk Needle Gauge: 21 Ultrasound used to visualize needle placement: Yes Ultrasound used to observe medication spread: Yes Blood Aspirated: No Pain Paresthesia on Injection Noted: No Resistance on Injection: Normal Image Stored and Saved: Yes Events: Uneventful and Well Tolerated (Ropivacaine 0.5% 20 mL plus dexamethasone 4 mg)
--- NOTE | 2023-06-04 11:22 | P.ANPRN ---
Procedure Note - Anesthesia - Nerve Block Performed Right Dhruvck Single Time Out Performed: Yes Date of Procedure: 06/03/23 Procedure Start Time: 07:10 Procedure Stop Time: 07:11 Location of Patient: PreOp Indication: Acute Post-Operative Pain, Requested by Surgeon Sedation Type: Sedate with meaningful contact maintained Preparation: Sterile Prep Position: Supine Needle Types: Pajunk Needle Gauge: 21 Ultrasound used to visualize needle placement: Yes Ultrasound used to observe medication spread: Yes Blood Aspirated: No Pain Paresthesia on Injection Noted: No Resistance on Injection: Normal Image Stored and Saved: Yes Events: Uneventful and Well Tolerated (Ropivacaine 0.5 was 25 mL plus dexamethasone 4 mg)
--- NOTE | 2023-06-04 13:09 | P.CONS ---
History of Present Illness - Reason for Consult Consult date: 06/04/23 - Chief Complaint Status post knee surgery - History of Present Illness * 67-year-old patient with past medical history significant for hyperlipidemia, was admitted for elective right knee surgery * Patient does have history of osteoarthritis and previously had left hip arthroplasty completed in April 2022. Patient does have history of degenerative joint disease * Patient is seen postoperative day one and underwent uncomplicated right total knee arthroplasty * Postoperatively patient transferred to orthopedic floor. Patient completed postoperative antibiotic course. Pain control with oral medications * Postprocedure her drain was removed and orthopedic team following * CBC obtained shows WBC 12, hemoglobin 10.8 platelet 204 REVIEW OF SYSTEMS: Right knee pain CONSTITUTIONAL: No fever, no malaise, no fatigue. HEENT: No recent visual problems or hearing problems. Denied any sore throat. CARDIOVASCULAR: No chest pain, orthopnea, PND, no palpitations, no syncope. PULMONARY: No shortness of breath, no cough, no hemoptysis. GASTROINTESTINAL: No diarrhea, no nausea, no vomiting, no abdominal pain. NEUROLOGICAL: No headaches, no weakness, no numbness. HEMATOLOGICAL: Denies any bleeding or petechiae. GENITOURINARY: Denies any burning micturition, frequency, or urgency. MUSCULOSKELETAL/RHEUMATOLOGICAL: Denies any joint pain, swelling, or any muscle pain. ENDOCRINE: Denies any polyuria or polydipsia. PHYSICAL EXAMINATION: GENERAL: The patient is alert and oriented x3, complains of pain/in distress Well developed, well nourished. HEENT: Pupils are round and equally reacting to light. EOMI. CARDIOVASCULAR: S1 and S2 present. No murmurs, rubs, or gallops. PULMONARY: Chest is clear to auscultation, no wheezing or crackles. ABDOMEN: Soft, nontender, nondistended, normoactive bowel sounds. No palpable organomegaly. MUSCULOSKELETAL: Right knee bandage. Range of motion limited EXTREMITIES: No cyanosis, clubbing, or pedal edema. NEUROLOGICAL: Gross neurological examination did not reveal any focal deficits. SKIN: No rashes. Past Medical History Past Medical History: Cancer, Hyperlipidemia, Musculoskeletal Disorder, Osteoarthritis (OA), Thyroid Disorder Additional Past Medical History / Comment(s): Seasonal allergies. Hx cervical cancer yrs ago-Stage 1, skin cancer X4, all Basal Cell, last removal was from face 03/2023, still has raised/discolored area on right cheek. Constipation, c urrent herniated disc, migraines. History of Any Multi-Drug Resistant Organisms: None Reported Past Surgical History: Joint Replacement, Orthopedic Surgery Additional Past Surgical History / Comment(s): Right knee surgery, bilateral bunionectomy and toe surgery, cataracts removed, partial thyroidectomy, bilateral hip replacements, skin cancer removed from face 03/2023, skin cancer removed X3 other times. Past Anesthesia/Blood Transfusion Reactions: Motion Sickness, Postoperative Nausea & Vomiting (PONV) Additional Past Anesthesia/Blood Transfusion Reaction / Comm: Brother PONV. Past Psychological History: No Psychological Hx Reported Additional Psychological History / Comment(s): regarding this surgery Smoking Status: Never smoker Past Alcohol Use History: Rare Past Drug Use History: None Reported - Past Family History Mother Family Medical History: No Reported History Sister(s) Family Medical History: Cancer Medications and Allergies Home Medications Medication Instructions Recorded Confirmed Type Acetaminophen [Tylenol Extra 1,000 mg PO Q6H PRN 09/28/21 06/03/23 History Strength] Atorvastatin [Lipitor] 80 mg PO QAM 09/28/21 06/03/23 History Fexofenadine HCl [Maddi Allergy] 180 mg PO DAILY 09/28/21 06/03/23 History Levothyroxine Sodium 112 mcg PO QAM 05/03/22 06/03/23 History Sodium Chloride [Saline Mist] 1 spray EA NOSTRIL DAILY PRN 05/30/23 06/03/23 History Ubrogepant [Ubrelvy] 100 mg PO BID PRN 05/31/23 06/03/23 History Aspirin 81 mg PO BID 30 Days #60 tab 06/04/23 Rx Diclofenac Sodium [Voltaren] 75 mg PO BID 30 Days #60 tab 06/04/23 Rx Docusate [Colace] 100 mg PO BID #28 capsule 06/04/23 Rx HYDROcodone/APAP 5-325MG [[place] 1 - 2 tab PO Q6HR PRN #32 tab 06/04/23 Rx 5-325] Omeprazole [PriLOSEC] 40 mg PO DAILY #30 cap 06/04/23 Rx Allergies Allergy/AdvReac Type Severity Reaction Status Date / Time hydrocodone [From Vicodin] AdvReac nausea, Verified 06/03/23 06:19 "feels loopy" Sulfa (Sulfonamide AdvReac Abdominal Verified 06/03/23 06:19 Antibiotics) Pain, nausea, vomiting Physical Exam Vitals: Vital Signs Temp Pulse Pulse Resp BP BP Pulse Ox 06/04/23 01:27 97.4 F L 69 16 108/70 96 06/03/23 19:41 97.4 F L 59 L 16 113/74 97 06/03/23 15:11 91 119/82 98 06/03/23 14:46 92 126/83 97 06/03/23 14:31 78 122/78 94 L 06/03/23 14:16 91 144/88 90 L 06/03/23 14:01 88 123/76 93 L 06/03/23 13:46 123/86 95 06/03/23 13:31 97.5 F L 92 18 130/81 95 06/03/23 12:30 95 16 124/69 96 06/03/23 12:00 85 16 122/68 96 06/03/23 11:45 103 H 16 120/70 96 06/03/23 11:30 79 16 122/67 98 06/03/23 11:15 80 16 120/70 97 06/03/23 11:00 95 16 125/73 97 06/03/23 10:45 79 16 126/69 99 06/03/23 10:15 102 H 16 127/72 100 06/03/23 10:13 97.7 F 106 H 10 L 128/70 100 Intake and Output 06/03/23 06/04/23 06/04/23 22:59 06:59 14:59 Intake Total 350 Output Total 240 610 Balance 110 -610 Intake: Oral 350 Output: Drainage 240 610 Right Knee 240 610 Other: # Voids 1 3 Results CBC & Chem 7: 06/04/23 05:06 Assessment and Plan Assessment: Assessment and plan * Status post right knee arthroplasty POD 1 * Hyperlipidemia * History of migraine * Patient is evaluated postoperative day 1, status post successful right knee arthroplasty, pain control with oral regimen * In regards to hyperlipidemia continue patient on Lipitor * Patient completed postoperative course of antibiotic * Internal medicine team will continue to follow along * Patient will need physical therapy occupational therapy evaluation * Thank you for consultation
[2023-06-04] MEDS: SENNOSIDES-DOCUSATE SODIUM 1 EACH TAB PO SCH (20:59)
[2023-06-05] MEDS: SODIUM CHLORIDE 0.9% 1,000 ML IV SCH ×3 (02:18→22:41)
[2023-06-05] MEDS: HYDROmorphone 0.5 MG/0.5 ML SYRINGE IVP PRN ×5 (03:35→22:29)
[2023-06-05] MEDS: hydrOXYzine pamoate 25 MG CAP PO PRN ×3 (03:35→11:36)
[2023-06-05] MEDS: LEVOTHYROXINE 112 MCG TAB PO SCH (06:03)
[2023-06-05] MEDS: LACTATED RINGERS 1,000 ML IV SCH (06:03)
[2023-06-05] MEDS: HYDROcodone/APAP 10-325MG 1 EACH TAB PO PRN (07:41)
[2023-06-05] MEDS: LORATADINE 10 MG TAB PO SCH (07:41)
[2023-06-05] MEDS: ATORVASTATIN 80 MG TAB PO SCH (07:41)
[2023-06-05] MEDS: ASPIRIN 81 MG PO SCH ×2 (07:41→21:05)
--- NOTE | 2023-06-05 08:17 | P.PN ---
Subjective Progress Note Date: 06/05/23 Patient is complaining of moderate to severe pain in her right knee. He states that yesterday midmorning her block wore off and she had increased pain through the day. She was able to get up and ambulate and sit in the chair. This morning she is complaining of pain in her knee. She also states that her hips and thighs are hurting. She denies chest pain or shortness of breath. Objective - Vital Signs Vital signs: Vital Signs Temp 98.2 F 06/05/23 07:13 Pulse 96 06/05/23 07:13 Resp 18 06/05/23 07:13 BP 173/99 06/05/23 07:13 Pulse Ox 100 06/05/23 07:13 FiO2 Intake & Output 06/04/23 06/05/23 06/05/23 18:59 06:59 18:59 Other: # Voids 2 5 1 - Exam The patient is resting in her bed. She is alert and able to answer questions. A focused exam of the right lower extremity was conducted. On inspection there is an intact dressing over the anterior aspect of the knee and her drain site. There is moderate swelling in the knee. Her thigh and calf are soft. Femoral nerve function is intact. She is able to actively dorsiflex and plantarflex her ankle and her toes. - Labs CBC & Chem 7: 06/04/23 05:06 Labs: Abnormal Lab Results - Last 24 Hours (Table) 06/04/23 Range/Units 05:06 WBC 12.29 H (4.50-10.00) X 10*3/uL RBC 3.60 L (4.10-5.20) X 10*6/uL Hgb 10.8 L (12.0-15.0) g/dL Hct 33.9 L (37.2-46.3) % MCHC 31.9 L (32.0-37.0) g/dL Neutrophils # 9.50 H (1.80-7.70) X 10*3/uL Monocytes # 1.14 H (0.20-1.00) X 10*3/uL Eosinophils # 0 L (0.04-0.35) X 10*3/uL Assessment and Plan Assessment: Postoperative day #2 status post right total knee replacement Plan: Continue treatment as outlined yesterday. Following the patient's hip replacements she had issues with pain and anxiety the first day or 2 following surgery. We will plan to continue working towards pain control and her right knee. We will try to transition her off of the IV pain medications but if n eeded we'll plan on giving her IV Dilaudid for breakthrough. We also discussed adjusting her oral medication to Percocet. Plan on keeping her until tomorrow as we work on getting her pain under control, but if she does well and would like to discharge home later today, I am fine with that as long as she's comfortable and is able to safely ambulate.
[2023-06-05] MEDS ORDERED: hydrALAZINE HCL 20 MG/ML 1 ML VIAL IVP PRN (09:20)
--- NOTE | 2023-06-05 12:32 | P.PN ---
Subjective Progress Note Date: 06/05/23 * 67-year-old patient with past medical history significant for hyperlipidemia, was admitted for elective right knee surgery * Patient does have history of osteoarthritis and previously had left hip arthroplasty completed in April 2022. Patient does have history of degenerative joint disease * Patient is seen postoperative day one and underwent uncomplicated right total knee arthroplasty * Postoperatively patient transferred to orthopedic floor. Patient completed postoperative antibiotic course. Pain control with oral medications * Postprocedure her drain was removed and orthopedic team following * CBC obtained shows WBC 12, hemoglobin 10.8 platelet 204 * 06/05/23: Patient seen and evaluated bedside, at bedside as well pain well controlled denies fever, chills, chest pain, abdominal pain REVIEW OF SYSTEMS: Right knee pain CONSTITUTIONAL: No fever, no malaise, no fatigue. HEENT: No recent visual problems or hearing problems. Denied any sore throat. CARDIOVASCULAR: No chest pain, orthopnea, PND, no palpitations, no syncope. PULMONARY: No shortness of breath, no cough, no hemoptysis. GASTROINTESTINAL: No diarrhea, no nausea, no vomiting, no abdominal pain. NEUROLOGICAL: No headaches, no weakness, no numbness. HEMATOLOGICAL: Denies any bleeding or petechiae. GENITOURINARY: Denies any burning micturition, frequency, or urgency. MUSCULOSKELETAL/RHEUMATOLOGICAL: Denies any joint pain, swelling, or any muscle pain. ENDOCRINE: Denies any polyuria or polydipsia. PHYSICAL EXAMINATION: GENERAL: The patient is alert and oriented x3, complains of pain/in distress Well developed, well nourished. HEENT: Pupils are round and equally reacting to light. EOMI. CARDIOVASCULAR: S1 and S2 present. No murmurs, rubs, or gallops. PULMONARY: Chest is clear to auscultation, no wheezing or crackles. ABDOMEN: Soft, nontender, nondistended, normoactive bowel sounds. No palpable organomegaly. MUSCULOSKELETAL: Right knee bandage. Range of motion limited EXTREMITIES: No cyanosis, clubbing, or pedal edema. NEUROLOGICAL: Gross neurological examination did not reveal any focal deficits. SKIN: No rashes. Objective - Vital Signs Vital signs: Vital Signs Temp 98.2 F 06/05/23 07:13 Pulse 96 06/05/23 07:13 Resp 18 06/05/23 07:13 BP 173/99 06/05/23 07:13 Pulse Ox 100 06/05/23 07:13 FiO2 Intake & Output 06/04/23 06/05/23 06/05/23 18:59 06:59 18:59 Other: # Voids 2 5 1 - Labs CBC & Chem 7: 06/04/23 05:06 Assessment and Plan Assessment: Assessment and plan * Status post right knee arthroplasty POD 2 * Hyperlipidemia * History of migraine * Patient is evaluated postoperative day 1, status post successful right knee arthroplasty, pain control with oral regimen * In regards to hyperlipidemia continue patient on Lipitor * Patient completed postoperative course of antibiotic * Internal medicine team will continue to follow along * Patient will need physical therapy occupational therapy evaluation * Thank you for consultation Time with Patient: Less than 30
[2023-06-05] MEDS: HYDROcodone/APAP 5-325MG 1 EACH TAB PO PRN ×2 (14:40→21:05)
[2023-06-05] MEDS: SENNOSIDES-DOCUSATE SODIUM 1 EACH TAB PO SCH (21:05)
[2023-06-06] MEDS: hydrOXYzine pamoate 25 MG CAP PO PRN (04:12)
[2023-06-06] MEDS: HYDROcodone/APAP 5-325MG 1 EACH TAB PO PRN ×2 (04:12→10:08)
[2023-06-06] MEDS: LEVOTHYROXINE 112 MCG TAB PO SCH (05:48)
[2023-06-06] MEDS: LACTATED RINGERS 1,000 ML IV SCH (05:52)
--- NOTE | 2023-06-06 07:54 | P.DS ---
Providers Date of admission: 06/03/2023 Attending physician: Michael Henao Consults: 06/03/23 10:25 Consult Physician Routine Consulting Provider: Alla Sweet Consult Reason/Comments: post op medical management Do you want consulting provider notified?: Yes Primary care physician: Srini Abbott [facility] Course: The patient is very pleasant previously healthy 67-year-old female who is ad mitted this past Tuesday and underwent a right total knee replacement. Following and Located surgery she was transferred to the orthopedic floor in stable condition. She received 2 doses of postoperative antibiotics. She was started on aspirin 81 mg twice a day for DVT prophylaxis. Internal medicine assisted with her perioperative medical management. She worked with physical therapy. She was transitioned from IV to oral pain medication. She was cleared for discharge home on 06/06/2023. Plan - Discharge Summary Discharge Rx Participant: No New Discharge Prescriptions: New Aspirin 81 mg PO BID 30 Days #60 tab Diclofenac Sodium [Voltaren] 75 mg PO BID 30 Days #60 tab HYDROcodone/APAP 5-325MG [Junction 5-325] 1 - 2 tab PO Q6HR PRN #32 tab PRN Reason: Pain Docusate [Colace] 100 mg PO BID #28 capsule Omeprazole [PriLOSEC] 40 mg PO DAILY #30 cap No Action Atorvastatin [Lipitor] 80 mg PO QAM Fexofenadine HCl [Maddi Allergy] 180 mg PO DAILY Acetaminophen [Tylenol Extra Strength] 1,000 mg PO Q6H PRN PRN Reason: Pain Sodium Chloride [Saline Mist] 1 spray EA NOSTRIL DAILY PRN PRN Reason: Nasal congestion Levothyroxine Sodium 112 mcg PO QAM Ubrogepant [Ubrelvy] 100 mg PO BID PRN PRN Reason: Migraine Headache Discharge Medication List Acetaminophen [Tylenol Extra Strength] 1,000 mg PO Q6H PRN 09/28/21 [History] Atorvastatin [Lipitor] 80 mg PO QAM 09/28/21 [History] Fexofenadine HCl [Maddi Allergy] 180 mg PO DAILY 09/28/21 [History] Levothyroxine Sodium 112 mcg PO QAM 05/03/22 [History] Sodium Chloride [Saline Mist] 1 spray EA NOSTRIL DAILY PRN 05/30/23 [History] Ubrogepant [Ubrelvy] 100 mg PO BID PRN 05/31/23 [History] Aspirin 81 mg PO BID 30 Days #60 tab 06/04/23 [Rx] Diclofenac Sodium [Voltaren] 75 mg PO BID 30 Days #60 tab 06/04/23 [Rx] Docusate [Colace] 100 mg PO BID #28 capsule 06/04/23 [Rx] HYDROcodone/APAP 5-325MG [Junction 5-325] 1 - 2 tab PO Q6HR PRN #32 tab 06/04/23 [Rx] Omeprazole [PriLOSEC] 40 mg PO DAILY #30 cap 06/04/23 [Rx] Follow up Appointment(s)/Referral(s): [facility], [NON-STAFF] - 1-2 Days Michael Henao MD [Medical Doctor] - 2 Weeks Activity/Diet/Wound Care/Special Instructions: 1. Weight-bear as tolerated on your operative extremity unless instructed otherwise. Use a walker or other assistive device to ambulate. 2. Leave surgical dressing in place. If your dressing becomes saturated with blood, there is drainage, or the dressing becomes loose please contact the office. 3. It is okay to shower with your surgical dressing, but do not submerge in water (no hot tubs, bath's, swimming etc.) 4. Make sure to take her blood clot prevention medication as prescribed (aspirin, Eliquis, Xarelto, and Plavix are commonly prescribed medications for blood clot prevention) 5. While taking Junction or Percocet for pain make sure you're taking a stool softener (Colace) and drink lots of water. 6. Keep all follow-up appointments as scheduled. You will usually be seen in 1-2 weeks following surgery. 7. Please contact the office with any questions or concerns [phone] Discharge Disposition: HOME SELF-CARE
[2023-06-06] MEDS: ASPIRIN 81 MG PO SCH (08:03)
[2023-06-06] MEDS: LORATADINE 10 MG TAB PO SCH (08:03)
[2023-06-06] MEDS: ATORVASTATIN 80 MG TAB PO SCH (08:03)
[2023-06-06 08:25] VITALS: BP 142/75; PULSE 97; RESP 17; TEMP 98.1
[2023-06-06 08:48] LABS: Basophils # (A) 0.03 X 10*3/uL (0.00-0.10); Basophils % (A) 0.4 %; Eosinophils # (A) 0.18 X 10*3/uL (0.04-0.35); Eosinophils % (A) 2.3 %; HCT 31.9 % (37.2-46.3); HGB 10.3 g/dL (12.0-15.0); Lymphocytes # (A) 1.28 X 10*3/uL (0.90-5.00); Lymphocytes % (A) 16.3 %; MCHC 32.3 g/dL (32.0-37.0); Mean Platelet Volume 10.4 FL (9.5-12.2); Monocytes # (A) 0.91 X 10*3/uL (0.20-1.00); Monocytes % (A) 11.6 %; NRBC Per 100 WBC 0 X 10*3/uL (0.00-0.01); Neutrophils # (A) 5.42 X 10*3/uL (1.80-7.70); Neutrophils % (A) 69.1 %; Platelet Count 195 X 10*3/uL (140-440); RBC 3.43 X 10*6/uL (4.10-5.20); RDW 12.3 % (11.5-14.5); WBC 7.84 X 10*3/uL (4.50-10.00)
--- NOTE | 2023-06-06 12:36 | P.PN ---
Subjective Progress Note Date: 06/06/23 * 67-year-old patient with past medical history significant for hyperlipidemia, was admitted for elective right knee surgery * Patient does have history of osteoarthritis and previously had left hip arthroplasty completed in April 2022. Patient does have history of degenerative joint disease * Patient is seen postoperative day one and underwent uncomplicated right total knee arthroplasty * Postoperatively patient transferred to orthopedic floor. Patient completed postoperative antibiotic course. Pain control with oral medications * Postprocedure her drain was removed and orthopedic team following * CBC obtained shows WBC 12, hemoglobin 10.8 platelet 204 * 06/05/23: Patient seen and evaluated bedside, at bedside as well pain well controlled denies fever, chills, chest pain, abdominal pain * 06/06: Patient seen and evaluated bedside pain is better controlled patient to be discharged home at bedside patient ambulating well REVIEW OF SYSTEMS: Right knee pain improved CONSTITUTIONAL: No fever, no malaise, no fatigue. HEENT: No recent visual problems or hearing problems. Denied any sore throat. CARDIOVASCULAR: No chest pain, orthopnea, PND, no palpitations, no syncope. PULMONARY: No shortness of breath, no cough, no hemoptysis. GASTROINTESTINAL: No diarrhea, no nausea, no vomiting, no abdominal pain. NEUROLOGICAL: No headaches, no weakness, no numbness. HEMATOLOGICAL: Denies any bleeding or petechiae. GENITOURINARY: Denies any burning micturition, frequency, or urgency. MUSCULOSKELETAL/RHEUMATOLOGICAL: Denies any joint pain, swelling, or any muscle pain. ENDOCRINE: Denies any polyuria or polydipsia. PHYSICAL EXAMINATION: GENERAL: The patient is alert and oriented x3, complains of pain/in distress Wel l developed, well nourished. HEENT: Pupils are round and equally reacting to light. EOMI. CARDIOVASCULAR: S1 and S2 present. No murmurs, rubs, or gallops. PULMONARY: Chest is clear to auscultation, no wheezing or crackles. ABDOMEN: Soft, nontender, nondistended, normoactive bowel sounds. No palpable organomegaly. MUSCULOSKELETAL: Right knee bandage. Range of motion limited EXTREMITIES: No cyanosis, clubbing, or pedal edema. NEUROLOGICAL: Gross neurological examination did not reveal any focal deficits. SKIN: No rashes. Objective - Vital Signs Vital signs: Vital Signs Temp 98.1 F 06/06/23 06:59 Pulse 97 11/20/23 08:04 Resp 17 06/06/23 08:04 BP 142/75 06/06/23 06:59 Pulse Ox 95 06/06/23 06:59 FiO2 Intake & Output 06/05/23 06/06/23 06/06/23 18:59 06:59 18:59 Other: # Voids 3 2 - Labs CBC & Chem 7: 06/06/23 05:47 Labs: Abnormal Lab Results - Last 24 Hours (Table) 06/06/23 Range/Units 05:47 RBC 3.43 L (4.10-5.20) X 10*6/uL Hgb 10.3 L (12.0-15.0) g/dL Hct 31.9 L (37.2-46.3) % Assessment and Plan Assessment: Assessment and plan * Status post right knee arthroplasty POD 3 * Hyperlipidemia * History of migraine * Patient is evaluated postoperative day 3, status post successful right knee arthroplasty, pain control with oral regimen * In regards to hyperlipidemia continue patient on Lipitor * Patient completed postoperative course of antibiotic * Internal medicine team will continue to follow along * Patient will need physical therapy occupational therapy evaluation * Thank you for consultation
== END 2023-06-06 11:47 | disposition home health service (06) | DRG 470 ==
LOC: OR 05:40 → 4SSUR 12:41 → OR 06-06 07:10 → 4SSUR 06-06 07:16
PROVIDERS: ADMIT Orthopaedic Surgery; ATTEND Orthopaedic Surgery
PROC: 8E0Y0CZ Robotic Assisted Procedure of Lower Extremity, Open Approach (ICD-10-PCS; 2023-06-03)
PROC: 3E0T3BZ Introduction of Anesthetic Agent into Peripheral Nerves and Plexi, Percutaneous Approach (ICD-10-PCS; 2023-06-03)
PROC: 0SRC0J9 Replacement of Right Knee Joint with Synthetic Substitute, Cemented, Open Approach (ICD-10-PCS; principal; 2023-06-03 07:30)
DX: M17.11 Unilateral primary osteoarthritis, right knee (principal); E78.5 Hyperlipidemia, unspecified; J30.81 Allergic rhinitis due to animal (cat) (dog) hair and dander; J30.2 Other seasonal allergic rhinitis; G43.909 Migraine, unspecified, not intractable, without status migrainosus; Z79.82 Long term (current) use of aspirin; Z85.41 Personal history of malignant neoplasm of cervix uteri; Z85.828 Personal history of other malignant neoplasm of skin; Z96.643 Presence of artificial hip joint, bilateral; Z98.42 Cataract extraction status, left eye; Z98.41 Cataract extraction status, right eye; Z88.2 Allergy status to sulfonamides; Z88.5 Allergy status to narcotic agent; Z88.8 Allergy status to other drugs, medicaments and biological substances
CPT/HCPCS: 64447; 64999; 85025

== ENCOUNTER → 2024-03-14 | Outpatient (CLI) | payer MEDICARE, OTHER ==
--- NOTE | 2024-03-20 14:28 | MM ---
Reason for Exam: Screening (asymptomatic). Last screening mammogram was performed 12 month(s) ago. Patient History: Menarche at age 16. First Full-Term at age 26. Postmenopausal. Patient has history of breast feeding. Other cancer, age 26. Other cancer, age 36. Risk Values: Afshan 5 year model risk: 1.7%. NCI Lifetime model risk: 5.9%. Prior Study Comparison: 07/13/2019 Bilateral Screening Mammogram, [facility]. 03/04/2022 Bilateral MG 3D screening mammo w/cad, [facility]. 03/07/2023 Bilateral MG 3D screening mammo w/cad, [facility]. Tissue Density: There are scattered areas of fibroglandular density. Findings: Analyzed By CAD. Right breast: There is no suspicious group of microcalcifications or new suspicious mass. Left breast: There is no suspicious group of microcalcifications or new suspicious mass. Overall Assessment: Negative, BI-RAD 1 Management: Screening Mammogram of both breasts in [address] [facility] will attempt to contact patient to return for supplemental views and ultrasound if indicated. Patient should continue monthly self-breast exams. A clinical breast exam by your physician is recommended on an annual basis. This exam should not preclude additional follow-up of suspicious palpable abnormalities. Note on Afshan scores and lifetime risk: 1. A Afshan score greater than 3% is considered moderate risk. If this is the case, consider specialist referral to assess eligibility for a risk reducing agent. 2. If overall lifetime risk for the development of breast cancer is 20% or higher, the patient may qualify for future screening with alternating mammogram and breast MRI. Electronically signed and approved by: Ray Santana DO
== END | disposition home or self-care (01) ==
LOC: RADMAMWWP 07:14
PROVIDERS: ATTEND Internal Medicine Geriatric Medicine
DX: Z12.31 Encounter for screening mammogram for malignant neoplasm of breast
CPT/HCPCS: 77063; 77067

== ENCOUNTER → 2024-06-22 | Outpatient (CLI) | payer MEDICARE, OTHER ==
[2024-06-22 15:41] LABS: ALT 26 U/L (8-44); AST 29 U/L (13-35)
[2024-06-22 15:46] LABS: Basophils # (A) 0.03 X 10*3/uL (0.00-0.10); Basophils % (A) 0.4 %; Eosinophils # (A) 0.25 X 10*3/uL (0.04-0.35); Eosinophils % (A) 3.7 %; HCT 42.5 % (37.2-46.3); HGB 13.6 g/dL (12.0-15.0); Lymphocytes # (A) 1.61 X 10*3/uL (0.90-5.00); Lymphocytes % (A) 23.8 %; MCH 30.3 pg (27.0-32.0); MCV 94.7 FL (80.0-97.0); Mean Platelet Volume 10.3 FL (9.5-12.2); Monocytes % (A) 10.3 %; NRBC Per 100 WBC 0 X 10*3/uL (0.00-0.01); Neutrophils # (A) 4.17 X 10*3/uL (1.80-7.70); Neutrophils % (A) 61.7 %; Platelet Count 240 X 10*3/uL (140-440); RBC 4.49 X 10*6/uL (4.10-5.20); RDW 12.2 % (11.5-14.5); WBC 6.77 X 10*3/uL (4.50-10.00)
== END | disposition home or self-care (01) ==
LOC: LABWHC1 10:02
PROVIDERS: ATTEND Dermatology
DX: B35.1 Tinea unguium (principal); Z79.899 Other long term (current) drug therapy
CPT/HCPCS: 36415; 84450; 84460; 85025

== ENCOUNTER → 2024-09-04 | Outpatient (CLI) | payer MEDICARE, OTHER ==
[2024-09-04 17:11] LABS: Basophils % (A) 1 %; Eosinophils # (A) 0.2 k/uL (0-0.7); Eosinophils % (A) 3 %; HCT 44.2 % (34.0-46.0); HGB 14.1 gm/dL (11.4-16.0); Lymphocytes # (A) 2.1 k/uL (1.0-4.8); Lymphocytes % (A) 30 %; MCH 30.6 pg (25.0-35.0); MCHC 31.9 g/dL (31.0-37.0); MCV 95.8 fL (80.0-100.0); Mean Platelet Volume 8.1; Monocytes # (A) 0.5 k/uL (0-1.0); Monocytes % (A) 7 %; Neutrophils # (A) 4.1 k/uL (1.3-7.7); Neutrophils % (A) 58 %; Platelet Count 293 k/uL (150-450); RBC 4.62 m/uL (3.80-5.40); RDW 12.8 % (11.5-15.5)
[2024-09-04 17:20] LABS: Total Eosinophil Count 182 #EOS/uL (150-300)
== END | disposition home or self-care (01) ==
LOC: LABWHC1 14:28
PROVIDERS: ATTEND Internal Medicine
DX: J30.9 Allergic rhinitis, unspecified (principal); J45.20 Mild intermittent asthma, uncomplicated; R05.3 Chronic cough
CPT/HCPCS: 36415; 82785; 85008; 85025